=== PATIENT | female | born 1965 | race Caucasian/White ===

== ENCOUNTER 2017-11-05 23:18 | Inpatient (IN) | payer OTHER ==
[2017-11-05] MEDS ORDERED: morphine CARPU-JECT 4 MG/1 ML DISP.SYRIN IVPUSH ONE (23:25)
[2017-11-05] MEDS ORDERED: SODIUM CHLORIDE 1,000 ML IV ONE (23:25)
[2017-11-05] MEDS ORDERED: ONDANSETRON 4 MG/2 ML VIAL IVPB ONE (23:25)
[2017-11-05] MEDS ORDERED: HYOSCYAMINE SULFATE 0.125 MG *ODT PO ONE (23:27)
--- NOTE | 2017-11-05 23:27 | PDOC ---
History of Present Illness - General Chief Complaint: Pain, Acute Stated Complaint: ABD PAIN/NAUSEA/VOMITING Time Seen by Provider: 11/05/17 23:23 History Source: Patient Exam Limitations: No Limitations - History of Present Illness Initial Comments: 11/05/17 23:40 This is a 52-year-old female who comes in for evaluation of abdominal pain. Patient said she ate shrimp yesterday and after eating the shrimp developed abdominal pain and vomiting. Patient said that she last vomited yesterday but has continued to have progressive abdominal pain. Patient has also had a number of episodes of loose stools but can't remember when the last episode was thinks it may have been yesterday. Patient said she is otherwise healthy takes no medication denies any chest pain or shortness of breath. Denies any fevers or chills. PAST MEDICAL HISTORY: no significant history PAST SURGICAL HISTORY: no significant history FAMILY HISTORY: no pertinant history SOCIAL HISTORY: Pt lives with family and is employed. MEDICATIONS: reviewed ALLERGIES: As per nursing notes Review of Systems General: No fevers or chills, no weakness, no weight loss HEENT: No change in vision. No sore throat,. No ear pain CardioVascular: No chest pain or shortness of breath Respiratory:No cough, or wheezing. Gastrointestinal: + nausea, + vomitting, + diarrhea or constipation, No rectal bleeding, + abdominal pain Genitourinary: No dysuria, hematuria, or frequency Musculoskeletal: No joint or muscle pain or swelling Neurologic: No headache, vertigo, dizziness or loss of consciousness Psychiatric: nor depression Skin: No rashes or easy bruising Endocrine: no increased thirst or abnormal weight change Allergic: no skin or latex allergy All other systems reviewed and normal Exam: General: Well-nourished well-developed individual, no acute distress HEENT: Throat: Normal, tonsils normal, no erythema or exudate Neck: Supple, no meningeal signs, no lymphadenopathy Eyes::Pupils equal reactive and round, extraocular motion intact Chest: Nontender to palpation Cardiac: S1-S2 normal, regular rate and rhythm, no murmurs rubs or gallops Respiratory: Lungs clear to auscultation bilateral Abdomen: Moderately distended abdomen with decreased bowel sounds and diffuse tenderness on palpation but more tender right lower quadrant than rest of abdomen. There is diffuse guarding with some rebound. Extremities: Warm, dry, no cyanosis, clubbing, or edema Skin: No rashes Neuro: Alert and oriented x3, CN II - XII intact, nonfocal exam with normal strength, normal sensation, normal reflexes, normal gait, Psych: Normal mood and affect 11/06/17 03:21 Reevaluation: Patient is beginning to feel nauseous again with some mild pain. Will remedicate with Reglan and Dilaudid. Patient also febrile to 102.7. Patient given IV Tylenol CT scan done and read this time. It shows a ruptured acute appendicitis with no abscess or free air. Patient given Zosyn. Surgeon contacted Dr. Carr who has accepted the patient for admission but wants patient to be transferred over to [facility] and will go to the OR at [facility] Past History - Past Medical History Allergies/Adverse Reactions: Allergies Allergy/AdvReac Type Severity Reaction Status Date / Time No Known Allergies Allergy Unverified 11/05/17 23:23 Home Medications: Ambulatory Orders NK [No Known Home Medication] 11/05/17 ED Treatment Course - LABORATORY CBC & Chemistry Diagram: 11/05/17 23:27 11/05/17 23:27 *DC/Admit/Observation/Transfer Diagnosis at time of Disposition: Acute appendicitis with rupture - Discharge Dispostion Condition at time of disposition: Stable Admit: Yes - Referrals - Patient Instructions - Post Discharge Activity
[2017-11-05] MEDS ORDERED: HYOSCYAMINE SULFATE 0.125 MG *ODT ONE (23:31)
[2017-11-05] MEDS ORDERED: morphine SULFATE 4 MG/ML VIAL ONE (23:32)
[2017-11-05] MEDS ORDERED: ONDANSETRON 4 MG/2 ML VIAL ONE (23:32)
[2017-11-05] MEDS ORDERED: HYDROmorphone HCL CARPU-JECT 1 MG/1 ML DISP.SYRIN IVPUSH ONE (23:43)
[2017-11-05] MEDS ORDERED: HYDROmorphone HCL CARPU-JECT 1 MG/1 ML DISP.SYRIN ONE (23:52)
[2017-11-06 00:24] LABS: BASO % 0.2 % (0-2.0); HEMATOCRIT 41.6 % (32.4-45.2); HEMOGLOBIN 13.8 GM/dL (10.7-15.3); LYMPH % 7.8 % (8-40); MCH 27.8 pg (25.7-33.7); MCHC 33.1 g/dl (32.0-36.0); MEAN CELL VOLUME 83.9 fl (80-96); MEAN PLT VOLUME 7.7 fl (7.5-11.1); MONO % 4.5 % (3.8-10.2); NEUT % 87.5 % (42.8-82.8); PLATELET COUNT 296 K/MM3 (134-434); RBC 4.96 M/mm3 (3.60-5.2); RDW 13.5 % (11.6-15.6); WHITE BLOOD COUNT 13.7 K/mm3 (4.0-10.0)
[2017-11-06 00:53] LABS: BLOOD UREA NITROGEN 9 mg/dl (7-18); CHLORIDE 99 mmol/L (98-107); CREATININE 0.8 mg/dl (0.6-1.3); GLUCOSE,RANDOM 157 mg/dl (74-106); POTASSIUM 4.1 mmol/L (3.5-5.1); SODIUM 136 mmol/L (136-145)
[2017-11-06 00:54] LABS: ALBUMIN 3.7 g/dl (3.5-5.0); ALK PHOS 84 U/L (32-92); ANION GAP 13 (8-16); BILIRUBIN,TOTAL 1.1 mg/dl (0.2-1.0); CALCIUM 9.1 mg/dl (8.4-10.2); CO2 24 mmol/L (22-28); LIPASE 74.8 U/L (22-51); SGOT/AST 11 U/L (10-42); SGPT/ALT 26 U/L (10-40); TOT PROT 7.1 g/dl (6.4-8.3)
[2017-11-06] MEDS ORDERED: PIPERACIL/TAZOB 3.375 GM 3.375 GM/50 ML PREMIX IVPB ONE ×2 (03:08→08:00)
[2017-11-06] MEDS ORDERED: PIPERACILLIN/TAZOBACTAM 3.375 GM VIAL IVPB ONE (03:12)
[2017-11-06] MEDS ORDERED: METOCLOPRAMIDE HCL INJECTION 10 MG/2 ML VIAL IVPUSH ONE (03:17)
[2017-11-06] MEDS ORDERED: HYDROmorphone HCL CARPU-JECT 1 MG/1 ML DISP.SYRIN IVPUSH ONE (03:18)
[2017-11-06] MEDS ORDERED: HYDROmorphone HCL CARPU-JECT 1 MG/1 ML DISP.SYRIN ONE (03:22)
[2017-11-06] MEDS ORDERED: ACETAMINOPHEN 1000 MG/100 ML VIAL (NON FORMULARY) IVPB ONE (03:23)
[2017-11-06] MEDS ORDERED: ACETAMINOPHEN INJECTION 100 ML IVPB ONE (03:30)
--- NOTE | 2017-11-06 03:46 | CONSULT ---
Consult Consult Specialty:: general surgery Referred by:: gilles - ED Reason for Consultation:: ruptured appendicitis - History of Present Illness Chief Complaint: abdominal pain and vomiting History of Present Illness: 52 yo female no significant PMH presented to the ED reporting two days of vomiting and abdominal pain. Patient said she ate shrimp yesterday and after eating the shrimp developed abdominal pain and vomiting. Patient said that she last vomited yesterday but has continued to have progressive crampy abdominal pain focal to the right lower quadrant. Patient has also had a number of episodes of loose stools but can't remember when the last episode was thinks it may have been yesterday. Patient said she is otherwise healthy takes no medication denies any chest pain or shortness of breath. Denies any fevers or chills. Has not had a colonoscopy or any previous abdominal surgery. - History Source History Provided By: Patient Limitations to Obtaining History: No Limitations - Past Surgical History Additional Surgical History: breast augmentation, excision of lipoma back - Alcohol/Substance Use Hx Alcohol Use: Yes (socially ) History of Substance Use: reports: None - Smoking History Smoking history: Former smoker Have you smoked in the past 12 months: No - Social History Place of : [facility] History of Recent Travel: No Home Medications - Allergies Allergies/Adverse Reactions: Allergies Allergy/AdvReac Type Severity Reaction Status Date / Time No Known Allergies Allergy Unverified 11/05/17 23:23 - Home Medications Home Medications: Ambulatory Orders NK [No Known Home Medication] 11/05/17 Family Disease History - Family Disease History Family History: Denies Review of Systems - Review of Systems Constitutional: reports: Loss of Appetite, Weakness. denies: Chills, Fever Eyes: denies: Blurred Vision, Recent Change in Vision HENT: denies: Difficult Swallowing, Throat Pain Neck: denies: Stiffness, Swollen Glands Cardiovascular: denies: Chest Pain, Palpitations Respiratory: denies: Cough, SOB Gastrointestinal: reports: Abdominal Pain (RLQ), Diarrhea, Vomiting Genitourinary: denies: Burning, Discharge, Dysuria Breasts: reports: No Symptoms Reported, Breast Implants Musculoskeletal: denies: Muscle Pain, Muscle Weakness Integumentary: denies: Lesions, Rash Neurological: denies: Syncope, Tremors Endocrine: denies: Unexplained Weight Gain, Unexplained Weight Loss Hematology/Lymphatic: denies: Easily Bruised, Excessive Bleeding, Swollen Glands Psychiatric: denies: Anxiety, Depression Physical Exam Vital Signs: Vital Signs Temperature 102.7 F H 11/06/17 03:20 Pulse Rate 102 H 11/06/17 03:28 Respiratory Rate 20 11/06/17 03:20 Blood Pressure 116/71 11/06/17 03:20 O2 Sat by Pulse Oximetry (%) 95 11/06/17 03:28 Vital Signs Period Temp Pulse Resp BP Sys/Mark Pulse Ox Last 24 Hr 98.5 F-102.7 F 94-105 18-20 95-133/70-80 93-98 Constitutional: Yes: No Distress, Calm Eyes: Yes: EOM Intact, PERRL HENT: Yes: Atraumatic, Normocephalic Neck: Yes: Supple, Trachea Midline Cardiovascular: Yes: Regular Rate and Rhythm, S1, S2 Respiratory: Yes: Regular, CTA Bilaterally Gastrointestinal: Yes: Normal Bowel Sounds, Soft, Tenderness (right lower quadrant), Tenderness, Rebound, Vomiting ...Rectal Exam: Yes: Deferred Renal/: No: CVA Tenderness - Left, CVA Tenderness - Right Breast(s): Yes: Other (bilateral augmentation) Musculoskeletal: No: Muscle Pain, Muscle Weakness Extremities: No: Calf Tenderness, Cool, Cyanosis Edema: No Peripheral Pulses WNL: Yes Integumentary: No: Jaundice, Rash Neurological: Yes: Alert, Oriented Psychiatric: Yes: Alert, Oriented Labs: CBC, BMP 11/05/17 23:27 11/05/17 23:27 Imaging - Results Chest X-ray: Pending (inflammed appendix with perforation) Cat Scan: Report Reviewed, Image Reviewed (ruptured acute appendicitis) Problem List - Problems (1) Acute appendicitis with rupture Assessment/Plan: 62yo female with ruptured acute appendictis, associated persistent emesis and dehydration - given the perforation she will require a hospitalization of at least 4 days for IV antibiotic therapy NPO and IVF hydration empiric IV antibiotics - Zosyn ID consult for continued dosing - Dr. Sheffield type and screen and coagulation panel stat antemetic adequate analgesia OR for laparoscopic possible open appendectomy - Discussed with patient risks, benefits and alternatives of the proprosed procedure including but not limited to bleeding, infection, injury to adjacent structures, leak or injury, intraabdominal abscess, need for further procedures, ; alternatives include antibiotics, delayed or no surgery - risks of this include failure of nonoperative therapy, perforation, sepsis, recurrence, . Patient desires to proceed with operation - will take to OR for above. Informed consent signed for same. Thank you for the opportunity to participate in the care of this patient. Code(s): K35.2 - ACUTE APPENDICITIS WITH GENERALIZED PERITONITIS (2) Peritonitis Code(s): K65.9 - PERITONITIS, UNSPECIFIED (3) Abdominal pain in female patient Code(s): R10.9 - UNSPECIFIED ABDOMINAL PAIN (4) Dehydration Code(s): E86.0 - DEHYDRATION (5) Emesis, persistent Code(s): R11.10 - VOMITING, UNSPECIFIED
[2017-11-06] MEDS ORDERED: morphine CARPU-JECT 2 MG/1 ML DISP.SYRIN IVPUSH PRN (03:49)
[2017-11-06] MEDS ORDERED: ONDANSETRON 4 MG/2 ML VIAL IVPB PRN ×4 (03:49→10:57)
[2017-11-06] MEDS ORDERED: LACTATED RINGERS SOLUTION 1,000 ML IV SCH ×4 (04:00→10:15)
--- NOTE | 2017-11-06 04:03 | HP ---
Admitting History and Physical - Admission Chief Complaint: abdominal pain and vomiting History of Present Illness: 52 yo female no significant PMH presented to the ED reporting two days of vomiting and abdominal pain. Patient said she ate shrimp yesterday and after eating the shrimp developed abdominal pain and vomiting. Patient said that she last vomited yesterday but has continued to have progressive crampy abdominal pain focal to the right lower quadrant. Patient has also had a number of episodes of loose stools but can't remember when the last episode was thinks it may have been yesterday. Patient said she is otherwise healthy takes no medication denies any chest pain or shortness of breath. Denies any fevers or chills. Has not had a colonoscopy or any previous abdominal surgery. History Source: Patient Limitations to Obtaining History: No Limitations - Smoking History Smoking history: Former smoker Have you smoked in the past 12 months: No - Alcohol/Substance Use Hx Alcohol Use: Yes (socially ) History of Substance Use: reports: None - Social History ADL: Independent History of Recent Travel: No Home Medications - Allergies Allergies/Adverse Reactions: Allergies Allergy/AdvReac Type Severity Reaction Status Date / Time No Known Allergies Allergy Unverified 11/05/17 23:23 - Home Medications Home Medications: Ambulatory Orders NK [No Known Home Medication] 11/05/17 Review of Systems - Review of Systems Constitutional: reports: Loss of Appetite, Weakness. denies: Chills, Fever Eyes: denies: Blurred Vision, Recent Change in Vision HENT: denies: Difficult Swallowing, Throat Pain Neck: denies: Pain on Movement, Stiffness Cardiovascular: denies: Chest Pain, Palpitations Respiratory: denies: Cough, SOB Gastrointestinal: reports: Abdominal Pain, Vomiting Genitourinary: denies: Burning, Discharge Breasts: reports: Other (breast augmentation) Musculoskeletal: denies: Back Pain, Joint Pain Integumentary: denies: Lesions, Rash Neurological: denies: Syncope, Tremors Endocrine: denies: Unexplained Weight Gain, Unexplained Weight Loss Hematology/Lymphatic: denies: Easily Bruised, Excessive Bleeding Psychiatric: denies: Anxiety, Depression Physical Examination Vital Signs: Vital Signs Temperature 102.7 F H 11/06/17 03:20 Pulse Rate 102 H 11/06/17 03:28 Respiratory Rate 20 11/06/17 03:20 Blood Pressure 116/71 11/06/17 03:20 O2 Sat by Pulse Oximetry (%) 95 11/06/17 03:28 Vital Signs Period Temp Pulse Resp BP Sys/Mark Pulse Ox Last 24 Hr 98.5 F-102.7 F 94-105 18-20 95-133/70-80 93-98 Constitutional: Yes: No Distress, Calm Eyes: Yes: Conjunctiva Clear, EOM Intact HENT: Yes: Atraumatic, Normocephalic Neck: Yes: Supple, Trachea Midline Cardiovascular: Yes: Regular Rate and Rhythm, S1, S2. No: Murmur Respiratory: Yes: Regular, CTA Bilaterally. No: Cough Gastrointestinal: Yes: Normal Bowel Sounds, Soft, Tenderness (right lower quadrant), Tenderness, Rebound ...Rectal Exam: Yes: Deferred Renal/: No: CVA Tenderness - Left, CVA Tenderness - Right Breast(s): Yes: Other (bilateral augmentation) Extremities: No: Cold, Cool Edema: No Peripheral Pulses WNL: Yes Integumentary: No: Jaundice, Rash Neurological: Yes: Alert, Oriented Psychiatric: Yes: Alert, Oriented Labs: CBC, BMP 11/05/17 23:27 11/05/17 23:27 Imaging - Results Cat Scan: Report Reviewed, Image Reviewed (inflamed and perforated appendicitis) Problem List - Problems (1) Acute appendicitis with rupture Assessment/Plan: 62yo female with ruptured acute appendicitis, associated persistent emesis and dehydration - given the perforation she will require a hospitalization of at least 4 days for IV antibiotic therapy NPO and IVF hydration empiric IV antibiotics - Zosyn ID consult for continued dosing - Dr. Sheffield type and screen and coagulation panel stat antemetic adequate analgesia OR for laparoscopic possible open appendectomy - Discussed with patient risks, benefits and alternatives of the proprosed procedure including but not limited to bleeding, infection, injury to adjacent structures, leak or injury, intraabdominal abscess, need for further procedures, ; alternatives include antibiotics, delayed or no surgery - risks of this include failure of nonoperative therapy, perforation, sepsis, recurrence, . Patient desires to proceed with operation - will take to OR for above. Informed consent signed for same. GI and DVT prophylaxsis Code(s): K35.2 - ACUTE APPENDICITIS WITH GENERALIZED PERITONITIS (2) Peritonitis Code(s): K65.9 - PERITONITIS, UNSPECIFIED (3) Abdominal pain in female patient Code(s): R10.9 - UNSPECIFIED ABDOMINAL PAIN (4) Dehydration Code(s): E86.0 - DEHYDRATION (5) Emesis, persistent Code(s): R11.10 - VOMITING, UNSPECIFIED
[2017-11-06] MEDS ORDERED: morphine SULFATE 4 MG/ML VIAL IVPUSH PRN (05:13)
[2017-11-06] MEDS ORDERED: ACETAMINOPHEN 650 MG/20.3 ML ORAL SOLUTION (CUPS) PO ONE (05:19)
[2017-11-06] MEDS ORDERED: morphine CARPU-JECT 8 MG/1 ML DISP.SYRIN IVPUSH PRN ×2 (05:35→06:02)
[2017-11-06] MEDS ORDERED: ACETAMINOPHEN 325 MG TABLET (FP) PO PRN (05:47)
[2017-11-06] MEDS ORDERED: IBUPROFEN 600 MG TABLET (FP) PO PRN (05:49)
[2017-11-06 06:17] VITALS: BMI 26.2
[2017-11-06 07:10] LABS: INR 1.43 (0.82-1.09); PROTHROMBIN TIME (PATIENT) 16.2 SEC (9.98-11.88)
[2017-11-06] MEDS ORDERED: PIPERACILLIN/TAZOB 3.375 GM 3.375 GM in DEXTROSE 5%-WATER - 100 ML IVPB ONE (08:15)
[2017-11-06] MEDS ORDERED: cefOXitin SODIUM 1 GM VIAL (RESTRICTED TO ID) IVPB ONE (08:45)
[2017-11-06] MEDS ORDERED: BUPIVACAINE HCL/PF 0.5% (5MG/ML) 10 ML VIAL IJ ONE ×2 (09:59)
[2017-11-06] MEDS ORDERED: PANTOPRAZOLE SODIUM 40 MG VIAL IVPUSH SCH (10:00)
[2017-11-06] MEDS ORDERED: PROMETHAZINE HCL 25 MG/1 ML VIAL IVPB PRN ×2 (10:15→10:57)
[2017-11-06] MEDS ORDERED: morphine CARPU-JECT 10 MG/1 ML DISP.SYRIN IVPUSH PRN (10:57)
[2017-11-06 11:10] LABS: URINE APPEARANCE CLEAR; URINE BILIRUBIN NEGATIVE (NEGATIVE); URINE BLOOD 2+ (NEGATIVE); URINE COLOR LTYELLOW; URINE GLUCOSE (UA) NEGATIVE (NEGATIVE); URINE KETONE NEGATIVE (NEGATIVE); URINE LEUK ESTERASE TRACE (NEGATIVE); URINE NITRITE NEGATIVE (NEGATIVE); URINE PROTEIN NEGATIVE (NEGATIVE); URINE UROBILINOGEN NEGATIVE mg/dL (0.2-1.0)
[2017-11-06 11:15] LABS: EPI CELLS FEW /HPF (FEW)
[2017-11-06] MEDS: LACTATED RINGERS SOLUTION 1,000 ML/1,000 ML INFUS.BAG IV SCH ×2 (11:40→18:34)
--- NOTE | 2017-11-06 12:33 | OP ---
Operative Note - Note: Operative Date: 11/06/17 Pre-Operative Diagnosis: acute ruptured appendicitis Operation: laparoscopic appendectomy Findings: acute inflamed appendix grossly necrotic in two locations, fell apart during dissection Post-Operative Diagnosis: Same as Pre-op Surgeon: Milton Carr Anesthesiologist/DIAGRAMMER: Terell Mireles Anesthesia: General, Local Specimens Removed: appendix in 3 pieces Estimated Blood Loss (mls): 25 Drains, Volume Out (mls): 240 (deluca) Fluid Volume Replaced (mls): 2,000 Operative Report Dictated: Yes
--- NOTE | 2017-11-06 14:05 | CON.ID ---
Consult Consult Specialty:: infectious diseases Reason for Consultation:: perforated appendix - History of Present Illness Chief Complaint: abd pain History of Present Illness: 52 yo female no significant PMH admitted because of two days of vomiting and abdominal pain. patient also was having loose stools patient was worked up and found to have ruptured appendix surgery took the patient to the operating room and patient underwent surgery and now is post op--says she feels much better family in room - History Source History Provided By: Patient Limitations to Obtaining History: No Limitations - Past Medical History ...: No - Past Surgical History Additional Surgical History: breast augmentation, excision of lipoma back - Alcohol/Substance Use Hx Alcohol Use: Yes (socially ) History of Substance Use: reports: None - Smoking History Smoking history: Former smoker Have you smoked in the past 12 months: No - Social History ADL: Independent History of Recent Travel: No Home Medications - Allergies Allergies/Adverse Reactions: Allergies Allergy/AdvReac Type Severity Reaction Status Date / Time No Known Allergies Allergy Unverified 11/05/17 23:23 - Home Medications Home Medications: Ambulatory Orders NK [No Known Home Medication] 11/05/17 Review of Systems - Review of Systems Constitutional: reports: No Symptoms Eyes: reports: No Symptoms HENT: reports: No Symptoms Neck: reports: No Symptoms Cardiovascular: reports: No Symptoms Respiratory: reports: No Symptoms Gastrointestinal: reports: Abdominal Pain Genitourinary: reports: No Symptoms Musculoskeletal: reports: No Symptoms Integumentary: reports: No Symptoms Neurological: reports: No Symptoms Endocrine: reports: No Symptoms Hematology/Lymphatic: reports: No Symptoms Psychiatric: reports: No Symptoms Physical Exam Vital Signs: Vital Signs Temperature 98.9 F 11/06/17 12:10 Pulse Rate 96 H 11/06/17 12:10 Respiratory Rate 18 11/06/17 12:10 Blood Pressure 120/70 11/06/17 12:10 O2 Sat by Pulse Oximetry (%) 97 11/06/17 12:09 Constitutional: Yes: Well Nourished, Calm, Mild Distress Eyes: Yes: Conjunctiva Clear Cardiovascular: Yes: Regular Rate and Rhythm Respiratory: Yes: Regular, CTA Bilaterally Gastrointestinal: Yes: Soft, Hypoactive Bowel Sounds Musculoskeletal: Yes: WNL Extremities: Yes: WNL Neurological: Yes: Alert, Oriented Psychiatric: Yes: Alert, Oriented Labs: CBC, BMP 11/05/17 23:27 11/05/17 23:27 Imaging - Results Chest X-ray: Report Reviewed, Image Reviewed Cat Scan: Report Reviewed, Image Reviewed Assessment/Plan Problem List - Problems (1) Acute appendicitis with rupture Code(s): K35.2 - ACUTE APPENDICITIS WITH GENERALIZED PERITONITIS (2) Peritonitis Code(s): K65.9 - PERITONITIS, UNSPECIFIED (3) Abdominal pain in female patient Code(s): R10.9 - UNSPECIFIED ABDOMINAL PAIN (4) Dehydration Code(s): E86.0 - DEHYDRATION (5) Emesis, persistent Code(s): R11.10 - VOMITING, UNSPECIFIED plan patient with ruptured apeendix will need couple of days of iv abx will continue zosyn rest as per surgery
[2017-11-06] MEDS: morphine CARPU-JECT 10 MG/1 ML DISP.SYRIN IVPUSH PRN (14:17)
[2017-11-06] MEDS: PIPERACILLIN/TAZOB 3.375 GM 3.375 GM in DEXTROSE 5%-WATER - 100 ML IVPB SCH (17:04)
[2017-11-06] MEDS: IBUPROFEN 600 MG TABLET (FP) PO PRN ×2 (17:09→23:16)
--- NOTE | 2017-11-06 18:35 | EKG ---
Test Reason : Blood Pressure : / mmHG Vent. Rate : 099 BPM Atrial Rate : 099 BPM P-R Int : 152 ms QRS Dur : 084 ms QT Int : 354 ms P-R-T Axes : 058 046 041 degrees QTc Int : 454 ms POOR DATA QUALITY, INTERPRETATION MAY BE ADVERSELY AFFECTED NORMAL SINUS RHYTHM RSR' OR QR PATTERN IN V1 SUGGESTS RIGHT VENTRICULAR CONDUCTION DELAY NO PREVIOUS ECGS AVAILABLE Confirmed by NEHA TSANG, FOREST ([id number]) on 11/06/2017 6:34:41 PM Referred By: MD MARTIN Confirmed By:FOREST SOLOMON MD
[2017-11-06] MEDS ORDERED: PT OWN MED DRAWER 7, Y5N ONE (22:01)
[2017-11-07] MEDS: PIPERACILLIN/TAZOB 3.375 GM 3.375 GM in DEXTROSE 5%-WATER - 100 ML IVPB SCH ×3 (02:44→17:15)
[2017-11-07] MEDS: LACTATED RINGERS SOLUTION 1,000 ML/1,000 ML INFUS.BAG IV SCH (06:46)
[2017-11-07] MEDS: morphine CARPU-JECT 10 MG/1 ML DISP.SYRIN IVPUSH PRN ×2 (07:42→13:05)
[2017-11-07 08:13] LABS: BASO % 0.4 % (0-2.0); EOS % 0.1 % (0-4.5); HEMATOCRIT 33.7 % (32.4-45.2); HEMOGLOBIN 11.2 GM/dL (10.7-15.3); LYMPH % 10.3 % (8-40); MCH 27.9 pg (25.7-33.7); MCHC 33.3 g/dl (32.0-36.0); MEAN CELL VOLUME 83.7 fl (80-96); MEAN PLT VOLUME 7.7 fl (7.5-11.1); MONO % 3.6 % (3.8-10.2); NEUT % 85.6 % (42.8-82.8); PLATELET COUNT 211 K/MM3 (134-434); RBC 4.02 M/mm3 (3.60-5.2); RDW 13.4 % (11.6-15.6); WHITE BLOOD COUNT 10.2 K/mm3 (4.0-10.0)
[2017-11-07 09:38] LABS: CHLORIDE 105 mmol/L (98-107); POTASSIUM 3.6 mmol/L (3.5-5.1); SODIUM 140 mmol/L (136-145)
[2017-11-07 09:46] LABS: ALBUMIN 2.4 g/dl (3.4-5.0); ALK PHOS 66 U/L (45-117); ANION GAP 9 (8-16); BILIRUBIN,TOTAL 1.4 mg/dL (0.2-1.0); BLOOD UREA NITROGEN 8 mg/dL (7-18); CALCIUM 8.2 mg/dL (8.5-10.1); CO2 26 mmol/L (21-32); CREATININE 0.7 mg/dL (0.55-1.02); GLUCOSE,RANDOM 102 mg/dL (74-106); SGOT/AST 12 U/L (15-37); SGPT/ALT 17 U/L (12-78); TOT PROT 5.3 g/dl (6.4-8.2)
[2017-11-07] MEDS: PANTOPRAZOLE SODIUM 40 MG VIAL IVPUSH SCH (10:39)
--- NOTE | 2017-11-07 13:22 | PN ---
Progress Note, Physician Chief Complaint: abdominal pain History of Present Illness: 52 yo female no significant PMH presented to the ED reporting two days of vomiting and abdominal pain. Patient said she ate shrimp yesterday and after eating the shrimp developed abdominal pain and vomiting. s/p laparoscopic appendectomy, has tolerated clears, passing flatus, pain is adequately controlled. She reports pain is improved compared to yesterday. - Current Medication List Current Medications: Active Medications Acetaminophen (Tylenol -) 650 mg PO Q6H PRN PRN Reason: FEVER OR PAIN Lactated Ringer's (Lactated Ringers Solution) 1,000 ml in 1,000 mls @ 83 mls/ hr IV ASDIR CESAR Last Admin: 11/07/17 06:46 Dose: 83 mls/hr Piperacillin Sod/Tazobactam (Sod 3.375 gm/ Dextrose) 100 mls @ 100 mls/hr IVPB Q8H-IV CESAR PRN Reason: Protocol Last Admin: 11/07/17 10:39 Dose: 100 mls/hr Ibuprofen (Motrin -) 600 mg PO Q6H PRN PRN Reason: PAIN LEVEL 1-5 Last Admin: 11/06/17 23:16 Dose: 600 mg Lorazepam (Ativan -) 1 mg PO ONCE ONE Stop: 11/07/17 21:01 Ondansetron HCl (Zofran Injection) 8 mg IVPB Q6H PRN PRN Reason: NAUSEA AND/OR VOMITING Oxycodone HCl (Roxicodone -) 5 mg PO Q6H PRN PRN Reason: PAIN LEVEL 6-10 Pantoprazole Sodium (Protonix Iv) 40 mg IVPUSH DAILY [facility] Last Admin: 11/07/17 10:39 Dose: 40 mg - Objective Vital Signs: Vital Signs Temperature 98.0 F 11/07/17 06:30 Pulse Rate 89 11/07/17 11:00 Respiratory Rate 24 11/07/17 06:30 Blood Pressure 100/54 11/07/17 06:30 O2 Sat by Pulse Oximetry (%) 93 L 11/07/17 11:00 Vital Signs Period Temp Pulse Resp BP Sys/Mark Pulse Ox Last 24 Hr 98.0 F-100.6 F 85-109 18-24 100-111/54-85 93-95 Constitutional: Yes: Well Nourished, No Distress, Calm Eyes: Yes: Conjunctiva Clear, EOM Intact HENT: Yes: Atraumatic, Normocephalic Neck: Yes: Supple, Trachea Midline Cardiovascular: Yes: Regular Rate and Rhythm, S1, S2. No: Murmur Respiratory: Yes: Regular, CTA Bilaterally Gastrointestinal: Yes: Normal Bowel Sounds, Soft, Tenderness (dylan incisonal) Genitourinary: No: CVA Tenderness - Left, CVA Tenderness - Right Breast(s): Yes: Breast Implants Extremities: No: Cool, Cyanosis Edema: Yes Peripheral Pulses WNL: No Peripheral Pulses: Left Doralis Pedis: 2+, Right Dorsalis Pedis: 2+ Integumentary: No: Jaundice, Rash Wound/Incision: Yes: Clean/Dry, Dressing Dry and Intact. No: Reddened, Bleeding Neurological: Yes: Alert, Confusion Psychiatric: Yes: Alert, Oriented Labs: CBC, BMP 11/07/17 06:00 11/07/17 06:00 INR, PTT INR 1.43 (0.82-1.09) H 11/06/17 06:38 Problem List - Problems (1) Acute appendicitis with rupture Assessment/Plan: 62yo female with ruptured acute appendicitis, associated persistent emesis and dehydration - given the perforation she will require a hospitalization of at least 4 days for IV antibiotic therapy s/p Laparoscopic appendectomy POD#1 voiding, passing gas no BM, using IS, Ambulating in the halls. will remove the outer dressing tomorrow advance diet to regular IV antibiotics per ID - Zosyn antiemetic anxiolytic started for bedtime adequate analgesia changed to PO GI and DVT prophylaxsis Code(s): K35.2 - ACUTE APPENDICITIS WITH GENERALIZED PERITONITIS (2) Peritonitis Code(s): K65.9 - PERITONITIS, UNSPECIFIED (3) Abdominal pain in female patient Code(s): R10.9 - UNSPECIFIED ABDOMINAL PAIN (4) Dehydration Code(s): E86.0 - DEHYDRATION (5) Emesis, persistent Code(s): R11.10 - VOMITING, UNSPECIFIED
--- NOTE | 2017-11-07 14:34 | PN ---
Progress Note, Physician History of Present Illness: continues to have abd pain still with some abd distension - Current Medication List Current Medications: Active Medications Acetaminophen (Tylenol -) 650 mg PO Q6H PRN PRN Reason: FEVER OR PAIN Lactated Ringer's (Lactated Ringers Solution) 1,000 ml in 1,000 mls @ 83 mls/ hr IV ASDIR CESAR Last Admin: 11/07/17 06:46 Dose: 83 mls/hr Piperacillin Sod/Tazobactam (Sod 3.375 gm/ Dextrose) 100 mls @ 100 mls/hr IVPB Q8H-IV CESAR PRN Reason: Protocol Last Admin: 11/07/17 10:39 Dose: 100 mls/hr Ibuprofen (Motrin -) 600 mg PO Q6H PRN PRN Reason: PAIN LEVEL 1-5 Last Admin: 11/06/17 23:16 Dose: 600 mg Lorazepam (Ativan -) 1 mg PO ONCE ONE Stop: 11/07/17 21:01 Ondansetron HCl (Zofran Injection) 8 mg IVPB Q6H PRN PRN Reason: NAUSEA AND/OR VOMITING Oxycodone HCl (Roxicodone -) 5 mg PO Q6H PRN PRN Reason: PAIN LEVEL 6-10 Pantoprazole Sodium (Protonix Iv) 40 mg IVPUSH DAILY [facility] Last Admin: 11/07/17 10:39 Dose: 40 mg - Objective Vital Signs: Vital Signs Temperature 98.5 F 11/07/17 10:00 Pulse Rate 89 11/07/17 11:00 Respiratory Rate 20 11/07/17 10:00 Blood Pressure 107/58 11/07/17 10:00 O2 Sat by Pulse Oximetry (%) 93 L 11/07/17 11:00 Constitutional: Yes: No Distress, Calm Cardiovascular: Yes: Regular Rate and Rhythm Respiratory: Yes: Regular, CTA Bilaterally Gastrointestinal: Yes: Distention, Tenderness, Other (absent bowel sounds) Musculoskeletal: Yes: WNL Extremities: Yes: WNL Wound/Incision: Yes: Well Approximated, Dressing Dry and Intact Labs: CBC, BMP 11/07/17 06:00 11/07/17 06:00 INR, PTT INR 1.43 (0.82-1.09) H 11/06/17 06:38 Assessment/Plan Problem List - Problems (1) Acute appendicitis with rupture Code(s): K35.2 - ACUTE APPENDICITIS WITH GENERALIZED PERITONITIS (2) Peritonitis Code(s): K65.9 - PERITONITIS, UNSPECIFIED (3) Abdominal pain in female patient Code(s): R10.9 - UNSPECIFIED ABDOMINAL PAIN (4) Dehydration Code(s): E86.0 - DEHYDRATION (5) Emesis, persistent Code(s): R11.10 - VOMITING, UNSPECIFIED plan continue iv abx await for gi function to come back wbc trending down--monitor rest as per surgery
--- NOTE | 2017-11-07 18:55 | PN ---
Progress Note, Physician Chief Complaint: Pt has some abdominal pain controlled with meds. No GA complaints - Current Medication List Current Medications: Active Medications Acetaminophen (Tylenol -) 650 mg PO Q6H PRN PRN Reason: FEVER OR PAIN Lactated Ringer's (Lactated Ringers Solution) 1,000 ml in 1,000 mls @ 83 mls/ hr IV ASDIR CESAR Last Admin: 11/07/17 06:46 Dose: 83 mls/hr Piperacillin Sod/Tazobactam (Sod 3.375 gm/ Dextrose) 100 mls @ 100 mls/hr IVPB Q8H-IV CESAR PRN Reason: Protocol Last Admin: 11/07/17 17:15 Dose: 100 mls/hr Ibuprofen (Motrin -) 600 mg PO Q6H PRN PRN Reason: PAIN LEVEL 1-5 Last Admin: 11/06/17 23:16 Dose: 600 mg Lorazepam (Ativan -) 1 mg PO ONCE ONE Stop: 11/07/17 21:01 Ondansetron HCl (Zofran Injection) 8 mg IVPB Q6H PRN PRN Reason: NAUSEA AND/OR VOMITING Oxycodone HCl (Roxicodone -) 5 mg PO Q6H PRN PRN Reason: PAIN LEVEL 6-10 Pantoprazole Sodium (Protonix Iv) 40 mg IVPUSH DAILY [facility] Last Admin: 11/07/17 10:39 Dose: 40 mg - Objective Vital Signs: Vital Signs Temperature 98.5 F 11/07/17 10:00 Pulse Rate 89 11/07/17 11:00 Respiratory Rate 20 11/07/17 10:00 Blood Pressure 107/58 11/07/17 10:00 O2 Sat by Pulse Oximetry (%) 93 L 11/07/17 11:00 Constitutional: Yes: Well Nourished, No Distress, Calm Musculoskeletal: Yes: WNL Neurological: Yes: WNL, Alert, Oriented Labs: CBC, BMP 11/07/17 06:00 11/07/17 06:00 INR, PTT INR 1.43 (0.82-1.09) H 11/06/17 06:38 Assessment/Plan POD#1 s/p laparoscopic appendectomy under GA. Doing well from anesthesia standpoint. D/C from anesthesia care
[2017-11-07] MEDS ORDERED: LORazepam 1 MG TABLET PO ONE (21:00)
[2017-11-07] MEDS: IBUPROFEN 600 MG TABLET (FP) PO PRN (21:09)
--- NOTE | 2017-11-07 22:05 | OP ---
DATE OF OPERATION: 11/06/2017 PREOPERATIVE DIAGNOSIS: Acute ruptured appendicitis. POSTOPERATIVE DIAGNOSIS: Acute ruptured appendicitis. PROCEDURE: Laparoscopic appendectomy. ATTENDING SURGEON: Milton Carr MD ANETHESIOLOGIST: Terell Mireles MD ANESTHESIA: General with local. Local consisted of 0.5% Marcaine, a total of 10 mL given at the port sites. SPECIMEN REMOVED: Appendix in 3 pieces. ESTIMATED BLOOD LOSS: 25 mL. DOMÍNGUEZ DRAIN: 240 mL of urine. INTRAVENOUS FLUID REPLACED: 2 L. INDICATIONS: The patient is a 52-year-old female with a history of COPD, breast augmentation surgery, who presented with 2 days of right lower quadrant abdominal pain that she mistook for food poisoning after a meal of shrimp. The workup in the ED included a CT scan that showed a ruptured appendicitis without abscess formation or free air. In the right lower quadrant it was inflamed. There was an inflammatory process in the vicinity. She was counseled regarding the need for surgical intervention. She signed the informed consent after she was explained the risks, benefits, and alternatives to surgical procedure proposed, that being laparoscopic appendectomy with possibility of opening. She was then taken for the procedure after she had all of her questions answered to her satisfaction. She was accompanied by her daughter and significant other. PROCEDURE: The patient was brought to the operating room and placed in the supine position on the operating table. The arms were extended 90 degrees. She was prepped and draped and had appropriate IV access on the table. She had lower extremities Venodynes placed. She received intravenous antibiotics including Zosyn prior to the start of the procedure. She was induced with general anesthesia and endotracheally intubated. At which point, the let arm was tucked at the site to allow for better operative access. The anterior abdominal wall was prepped and draped in the standard surgical fashion, blocking the lower abdomen. We proceeded first with a formal timeout, identifying the site, procedure, equipment was identified in the room, and counts were correct preoperatively. We proceeded first with sterile prep and drape, at which point we proceeded then with surgical markings at the site; at the supraumbilical site, the suprapubic site in the midline, and then the anterior superior iliac spine in the left lower quadrant as the third port. At the umbilicus, we started with the standard Zuniga entry into the abdomen. A 15-blade scalpel was used to incise the skin. Bovie cautery was used to deepen and widen the incision to the anterior fascia. It was identified and then scored in the midline. Benjamin's were used to retract the midline fascia superiorly and elevate it off of the abdomen, at which point, entry was made into the abdomen with a clamp and then a finger. Assuring that there were no adherent viscera to the site, a 12-mm Zuniga trocar was then inserted into the abdomen. The balloon was inflated and pneumoperitoneum established at 15 mmHg, at which point we proceeded then with port entries at the suprapubic area under direct visualization and the left lower quadrant as well in the standard fashion, 5-mm ports at each. After instilling the trocar sites, we then turned our attention to the right lower quadrant. There was a significant inflammatory process that was identified. The patient was ideally positioned in reverse Trendelenburg to allow gravity to facilitate retraction and dissection. We then carefully dissected the edge of the cecum and the ileocecal valve, identifying what appeared to be an obvious rupture in the mid body of the appendix, near the tip. The tip was freed, at which point the first fragment of appendix easily fell apart. It was kept in the quadrant for later retrieval. We then proceeded to try to control contamination with suction and free the remaining body segments. The base could be identified on the cecum and it was cleared at all aspects and then dissected with a [place] dissector to encircle the body of the appendix. An EndoGIA was then used from the umbilical port. It was 10-mm with a blue load, to allow for adequate control of the base itself. Once the EndoGIA was fired, we proceeded then with dissection of the mesoappendix and appendiceal artery mesentery from the inflammatory mass. We used a single white firing to transect the mesoappendix where it could be ideally visualized on all aspects. There was no bleeding on the staple line. The area was then irrigated with the patient in the dependent position to allow for suctioning. Once hemostasis could be obtained, the remaining 3 fragments of the appendix were retrieved from the abdomen using an EndoCatch bag from the umbilicus. With all 3 pieces accounted for externally, the pneumoperitoneum was reestablished and we turned our attention to inspecting the area. The ileocecal valve was identified. The cecum appeared to be intact. There were no additional sites of bowel injury. The inflammatory peel was irrigated copiously. The patient was returned to neutral position. The irrigation was serially suctioned from the abdomen and pelvis to the best of our ability. We then proceeded with returning the bowel to normal anatomic position. The remainder of the abdominal viscera appeared healthy and viable. Given the amount of contamination from the ruptured appendix, we decided not to leave a drain at this point as all structures appeared to be intact and well repaired. We removed the trocars under direct visualization and then relieved the pneumoperitoneum. The 5-mm trocar site at the suprapubic site and the left lower quadrant were closed with 4-0 Monocryl. The umbilicus was closed with a 4-0 Vicryl in a [id number] fashion ablating the fascia and closing the 12-mm port site. The skin was then irrigated and the skin was closed with 4-0 Monocryl in the standard running fashion. The skin was cleaned. Sterile dressings were placed including benzoin and Steri-Strips and gauze sponges with Tegaderm to hold them in place. The patient was awoken from general anesthesia, having tolerated the procedure well. She was taken to the recovery room in stable condition. She was also counseled regarding the findings. MD GRETCHEN Carney/[id number]
[2017-11-08] MEDS ORDERED: PT OWN MED DRAWER 7, Y5N ONE ×2 (01:10→09:33)
[2017-11-08] MEDS: PIPERACILLIN/TAZOB 3.375 GM 3.375 GM in DEXTROSE 5%-WATER - 100 ML IVPB SCH ×2 (01:22→09:45)
[2017-11-08 08:57] LABS: BASO % 0.5 % (0-2.0); EOS % 1.2 % (0-4.5); HEMATOCRIT 29.9 % (32.4-45.2); HEMOGLOBIN 9.9 GM/dL (10.7-15.3); MCH 27.6 pg (25.7-33.7); MCHC 33.1 g/dl (32.0-36.0); MEAN CELL VOLUME 83.3 fl (80-96); MEAN PLT VOLUME 7.7 fl (7.5-11.1); NEUT % 83.3 % (42.8-82.8); PLATELET COUNT 215 K/MM3 (134-434); RBC 3.59 M/mm3 (3.60-5.2); RDW 13.5 % (11.6-15.6); WHITE BLOOD COUNT 9.9 K/mm3 (4.0-10.0)
[2017-11-08 09:26] LABS: ALBUMIN 2.1 g/dl (3.4-5.0); ANION GAP 8 (8-16); BILIRUBIN,TOTAL 0.9 mg/dL (0.2-1.0); BLOOD UREA NITROGEN 9 mg/dL (7-18); CALCIUM 8.1 mg/dL (8.5-10.1); CHLORIDE 106 mmol/L (98-107); CO2 28 mmol/L (21-32); CREATININE 0.4 mg/dL (0.55-1.02); GLUCOSE,RANDOM 86 mg/dL (74-106); POTASSIUM 3.8 mmol/L (3.5-5.1); SGOT/AST 10 U/L (15-37); SGPT/ALT 14 U/L (12-78); SODIUM 142 mmol/L (136-145)
[2017-11-08 09:27] LABS: ALK PHOS 63 U/L (45-117)
[2017-11-08] MEDS: PANTOPRAZOLE SODIUM 40 MG VIAL IVPUSH SCH (09:45)
--- NOTE | 2017-11-08 09:50 | PN ---
Progress Note, Physician Chief Complaint: abdominal pain History of Present Illness: 52 yo female no significant PMH presented to the ED reporting two days of vomiting and abdominal pain. Patient said she ate shrimp yesterday and after eating the shrimp developed abdominal pain and vomiting. s/p laparoscopic appendectomy, has tolerated regular diet, passing flatus, pain is adequately controlled. She is not sleeping well. She reports pain is improving at the surgical site. - Current Medication List Current Medications: Active Medications Acetaminophen (Tylenol -) 650 mg PO Q6H PRN PRN Reason: FEVER OR PAIN Lactated Ringer's (Lactated Ringers Solution) 1,000 ml in 1,000 mls @ 83 mls/ hr IV ASDIR CESAR Last Admin: 11/07/17 06:46 Dose: 83 mls/hr Piperacillin Sod/Tazobactam (Sod 3.375 gm/ Dextrose) 100 mls @ 100 mls/hr IVPB Q8H-IV CESAR PRN Reason: Protocol Last Admin: 11/08/17 09:45 Dose: 100 mls/hr Ibuprofen (Motrin -) 600 mg PO Q6H PRN PRN Reason: PAIN LEVEL 1-5 Last Admin: 11/07/17 21:09 Dose: 600 mg Ondansetron HCl (Zofran Injection) 8 mg IVPB Q6H PRN PRN Reason: NAUSEA AND/OR VOMITING Oxycodone HCl (Roxicodone -) 5 mg PO Q6H PRN PRN Reason: PAIN LEVEL 6-10 Pantoprazole Sodium (Protonix Iv) 40 mg IVPUSH DAILY [facility] Last Admin: 11/08/17 09:45 Dose: 40 mg - Objective Vital Signs: Vital Signs Temperature 97.7 F 11/08/17 08:00 Pulse Rate 93 H 11/08/17 08:00 Respiratory Rate 11/08/17 08:00 Blood Pressure 115/69 11/08/17 08:00 O2 Sat by Pulse Oximetry (%) 93 L 11/07/17 21:00 Constitutional: Yes: Well Nourished, No Distress, Calm Eyes: Yes: Conjunctiva Clear, EOM Intact HENT: Yes: Atraumatic, Normocephalic Neck: Yes: Supple, Trachea Midline Cardiovascular: Yes: Regular Rate and Rhythm, S1, S2 Respiratory: Yes: Regular, CTA Bilaterally Gastrointestinal: Yes: Normal Bowel Sounds, Soft. No: Tenderness Breast(s): Yes: Breast Implants Edema: No Peripheral Pulses WNL: Yes Peripheral Pulses: Left Doralis Pedis: 2+, Right Dorsalis Pedis: 2+ Wound/Incision: Yes: Clean/Dry, Well Approximated, Steri Strips (in place), Dressing Removed (tegader and junito sponge removed) Neurological: Yes: Alert, Oriented Psychiatric: Yes: Alert, Oriented Labs: CBC, BMP 11/08/17 07:28 11/08/17 07:28 INR, PTT INR 1.43 (0.82-1.09) H 11/06/17 06:38 Problem List - Problems (1) Acute appendicitis with rupture Assessment/Plan: 62yo female with ruptured acute appendicitis, associated persistent emesis and dehydration - given the perforation she will require a hospitalization of at least 4 days for IV antibiotic therapy s/p Laparoscopic appendectomy POD#2 voiding, passing gas no BM, using IS, Ambulating in the halls. Wounds look good. advance diet to regular IV antibiotics per ID - Zosyn antiemetic may shower anxiolytic started for bedtime adequate analgesia changed to PO GI and DVT prophylaxsis Code(s): K35.2 - ACUTE APPENDICITIS WITH GENERALIZED PERITONITIS (2) Peritonitis Code(s): K65.9 - PERITONITIS, UNSPECIFIED (3) Abdominal pain in female patient Code(s): R10.9 - UNSPECIFIED ABDOMINAL PAIN (4) Dehydration Code(s): E86.0 - DEHYDRATION (5) Emesis, persistent Code(s): R11.10 - VOMITING, UNSPECIFIED
[2017-11-08] MEDS ORDERED: diazePAM 5 MG TABLET PO ONE (13:15)
[2017-11-08] MEDS: ACETAMINOPHEN 325 MG TABLET (FP) PO PRN ×2 (14:31→21:13)
[2017-11-08] MEDS: oxyCODONE HCL 5 MG TABLET PO PRN ×2 (14:32→21:13)
--- NOTE | 2017-11-08 15:10 | PN ---
Progress Note, Physician History of Present Illness: stable doing well passing gases abd soft - Current Medication List Current Medications: Active Medications Acetaminophen (Tylenol -) 650 mg PO Q6H PRN PRN Reason: FEVER OR PAIN Last Admin: 11/08/17 14:31 Dose: 325 mg Piperacillin Sod/Tazobactam (Sod 3.375 gm/ Dextrose) 100 mls @ 100 mls/hr IVPB Q8H-IV CESAR PRN Reason: Protocol Last Admin: 11/08/17 09:45 Dose: 100 mls/hr Ibuprofen (Motrin -) 600 mg PO Q6H PRN PRN Reason: PAIN LEVEL 1-5 Last Admin: 11/07/17 21:09 Dose: 600 mg Ondansetron HCl (Zofran Injection) 8 mg IVPB Q6H PRN PRN Reason: NAUSEA AND/OR VOMITING Oxycodone HCl (Roxicodone -) 5 mg PO Q6H PRN PRN Reason: PAIN LEVEL 6-10 Last Admin: 11/08/17 14:32 Dose: 5 mg Pantoprazole Sodium (Protonix Iv) 40 mg IVPUSH DAILY [facility] Last Admin: 11/08/17 09:45 Dose: 40 mg - Objective Vital Signs: Vital Signs Temperature 97.7 F 11/08/17 08:00 Pulse Rate 93 H 11/08/17 08:00 Respiratory Rate 18 11/08/17 08:00 Blood Pressure 115/69 11/08/17 08:00 O2 Sat by Pulse Oximetry (%) 93 L 11/08/17 09:00 Constitutional: Yes: Calm, Mild Distress Cardiovascular: Yes: Regular Rate and Rhythm Gastrointestinal: Yes: Normal Bowel Sounds, Soft Musculoskeletal: Yes: WNL Extremities: Yes: WNL Integumentary: Yes: WNL Wound/Incision: Yes: Clean/Dry, Dressing Dry and Intact Neurological: Yes: Alert, Oriented Psychiatric: Yes: Alert, Oriented Labs: CBC, BMP 11/08/17 07:28 11/08/17 07:28 INR, PTT INR 1.43 (0.82-1.09) H 11/06/17 06:38 Assessment/Plan Problem List - Problems (1) Acute appendicitis with rupture Code(s): K35.2 - ACUTE APPENDICITIS WITH GENERALIZED PERITONITIS (2) Peritonitis Code(s): K65.9 - PERITONITIS, UNSPECIFIED (3) Abdominal pain in female patient Code(s): R10.9 - UNSPECIFIED ABDOMINAL PAIN (4) Dehydration Code(s): E86.0 - DEHYDRATION (5) Emesis, persistent Code(s): R11.10 - VOMITING, UNSPECIFIED plan wbc normal gi function returned will switch to oral abx and watch rest as per primary team
[2017-11-08] MEDS ORDERED: diazePAM 5 MG TABLET PO PRN (16:39)
[2017-11-08] MEDS: AMOX TR/POT CLAV 875MG/125MG TABLETS (FP) PO SCH (16:53)
[2017-11-09] MEDS: oxyCODONE HCL 5 MG TABLET PO PRN ×2 (05:36→13:28)
[2017-11-09] MEDS: ACETAMINOPHEN 325 MG TABLET (FP) PO PRN ×2 (05:36→13:29)
[2017-11-09] MEDS: AMOX TR/POT CLAV 875MG/125MG TABLETS (FP) PO SCH ×2 (08:31→16:43)
[2017-11-09] MEDS: PANTOPRAZOLE SODIUM 40 MG VIAL IVPUSH SCH (11:00)
--- NOTE | 2017-11-09 12:41 | PN ---
Progress Note, Physician Chief Complaint: abdominal pain History of Present Illness: 52 yo female no significant PMH presented to the ED reporting two days of vomiting and abdominal pain. Patient said she ate shrimp yesterday and after eating the shrimp developed abdominal pain and vomiting. s/p laparoscopic appendectomy, has tolerated regular diet, passing flatus, pain is adequately controlled. She is sleeping a bit better. She reports pain is improving at the surgical site. - Current Medication List Current Medications: Active Medications Acetaminophen (Tylenol -) 650 mg PO Q6H PRN PRN Reason: FEVER OR PAIN Last Admin: 11/09/17 05:36 Dose: 650 mg Amoxicillin/Clavulanate Potassium (Augmentin - 875mg Tablet) 1 tab PO BID@0800, 1730 [facility] Last Admin: 11/09/17 08:31 Dose: 1 tab Diazepam (Valium -) 10 mg PO DAILY [facility] Stop: 11/11/17 09:59 Ibuprofen (Motrin -) 600 mg PO Q6H PRN PRN Reason: PAIN LEVEL 1-5 Last Admin: 11/07/17 21:09 Dose: 600 mg Ondansetron HCl (Zofran Injection) 8 mg IVPB Q6H PRN PRN Reason: NAUSEA AND/OR VOMITING Oxycodone HCl (Roxicodone -) 5 mg PO Q6H PRN PRN Reason: PAIN LEVEL 6-10 Last Admin: 11/09/17 05:36 Dose: 5 mg Pantoprazole Sodium (Protonix Iv) 40 mg IVPUSH DAILY [facility] Last Admin: 11/08/17 09:45 Dose: 40 mg - Objective Vital Signs: Vital Signs Temperature 98.3 F 11/09/17 08:00 Pulse Rate 90 11/09/17 08:00 Respiratory Rate 18 11/09/17 08:00 Blood Pressure 120/70 11/09/17 08:00 O2 Sat by Pulse Oximetry (%) 93 L 11/09/17 08:50 Constitutional: Yes: Well Nourished, No Distress, Calm Eyes: Yes: Conjunctiva Clear, EOM Intact HENT: Yes: Atraumatic, Normocephalic Neck: Yes: Supple, Trachea Midline Cardiovascular: Yes: Regular Rate and Rhythm, S1, S2. No: Murmur Respiratory: Yes: Regular, CTA Bilaterally Gastrointestinal: Yes: Normal Bowel Sounds, Soft, Tenderness (periumbilical only ), Other (wounds are clean and dry) ...Rectal Exam: Yes: Deferred Genitourinary: No: CVA Tenderness - Left, CVA Tenderness - Right Musculoskeletal: No: Muscle Pain, Muscle Weakness Integumentary: Yes: Rash (scattered subcentimeter blisters largest being in the upper abdomen) Neurological: Yes: Alert, Oriented Psychiatric: Yes: Alert, Oriented Labs: CBC, BMP 11/08/17 07:28 11/08/17 07:28 INR, PTT INR 1.43 (0.82-1.09) H 11/06/17 06:38 Problem List - Problems (1) Acute appendicitis with rupture Assessment/Plan: 62yo female with ruptured acute appendicitis, associated persistent emesis and dehydration - given the perforation she will require a hospitalization of at least 4 days for IV antibiotic therapy s/p Laparoscopic appendectomy POD#3 voiding, passing gas no BM, using IS, Ambulating in the halls. Wounds look good. low grade fever each night 99. Will change back to IV if persists, new rash, does not appear to be hypersensitivity will request dermatology evaluation advance diet to regular IV antibiotics per ID antiemetic may shower anxiolytic titrated for bedtime adequate analgesia changed to PO GI and DVT prophylaxsis Code(s): K35.2 - ACUTE APPENDICITIS WITH GENERALIZED PERITONITIS (2) Peritonitis Code(s): K65.9 - PERITONITIS, UNSPECIFIED (3) Abdominal pain in female patient Code(s): R10.9 - UNSPECIFIED ABDOMINAL PAIN (4) Dehydration Code(s): E86.0 - DEHYDRATION (5) Emesis, persistent Code(s): R11.10 - VOMITING, UNSPECIFIED
--- NOTE | 2017-11-09 12:43 | PN ---
Progress Note, Physician History of Present Illness: spiked a low grade fever last night currently no complaints - Current Medication List Current Medications: Active Medications Acetaminophen (Tylenol -) 650 mg PO Q6H PRN PRN Reason: FEVER OR PAIN Last Admin: 11/09/17 05:36 Dose: 650 mg Amoxicillin/Clavulanate Potassium (Augmentin - 875mg Tablet) 1 tab PO BID@0800, 1730 [facility] Last Admin: 11/09/17 08:31 Dose: 1 tab Diazepam (Valium -) 10 mg PO DAILY [facility] Stop: 11/11/17 09:59 Ibuprofen (Motrin -) 600 mg PO Q6H PRN PRN Reason: PAIN LEVEL 1-5 Last Admin: 11/07/17 21:09 Dose: 600 mg Ondansetron HCl (Zofran Injection) 8 mg IVPB Q6H PRN PRN Reason: NAUSEA AND/OR VOMITING Oxycodone HCl (Roxicodone -) 5 mg PO Q6H PRN PRN Reason: PAIN LEVEL 6-10 Last Admin: 11/09/17 05:36 Dose: 5 mg Pantoprazole Sodium (Protonix Iv) 40 mg IVPUSH DAILY [facility] Last Admin: 11/08/17 09:45 Dose: 40 mg - Objective Vital Signs: Vital Signs Temperature 98.3 F 11/09/17 08:00 Pulse Rate 90 11/09/17 08:00 Respiratory Rate 18 11/09/17 08:00 Blood Pressure 120/70 11/09/17 08:00 O2 Sat by Pulse Oximetry (%) 93 L 11/09/17 08:50 Constitutional: Yes: No Distress, Calm Cardiovascular: Yes: Regular Rate and Rhythm Respiratory: Yes: Regular, CTA Bilaterally Gastrointestinal: Yes: Normal Bowel Sounds, Soft Musculoskeletal: Yes: WNL Extremities: Yes: WNL Wound/Incision: Yes: Clean/Dry, Dressing Dry and Intact Neurological: Yes: Alert, Oriented Psychiatric: Yes: Alert, Oriented Labs: CBC, BMP 11/08/17 07:28 11/08/17 07:28 INR, PTT INR 1.43 (0.82-1.09) H 11/06/17 06:38 Assessment/Plan Problem List - Problems (1) Acute appendicitis with rupture Code(s): K35.2 - ACUTE APPENDICITIS WITH GENERALIZED PERITONITIS (2) Peritonitis Code(s): K65.9 - PERITONITIS, UNSPECIFIED (3) Abdominal pain in female patient Code(s): R10.9 - UNSPECIFIED ABDOMINAL PAIN (4) Dehydration Code(s): E86.0 - DEHYDRATION (5) Emesis, persistent Code(s): R11.10 - VOMITING, UNSPECIFIED plan watch till the patient is afebrile continue oral abx for now if patient spikes fever then will switch to iv again rest as per primary team
[2017-11-09] MEDS ORDERED: CYCLOBENZAPRINE HCL 10 MG TABLET (FP) PO PRN (17:42)
[2017-11-09] MEDS ORDERED: KETOROLAC TROMETHAMINE 15 MG/ML VIAL IVPUSH PRN (17:46)
[2017-11-10] MEDS: diazePAM 5 MG TABLET PO SCH ×2 (00:17→23:19)
[2017-11-10] MEDS: ACETAMINOPHEN 325 MG TABLET (FP) PO PRN ×2 (00:26→21:18)
[2017-11-10] MEDS: AMOX TR/POT CLAV 875MG/125MG TABLETS (FP) PO SCH ×2 (08:36→17:31)
[2017-11-10] MEDS ORDERED: PIPERACILLIN/TAZOB 3.375 GM/50 ML PRE-DOCKED IVPB ONE (09:49)
[2017-11-10] MEDS ORDERED: PIPERACILLIN/TAZOB 3.375 GM 3.375 GM in DEXTROSE 5%-WATER - 100 ML IVPB ONE (10:00)
--- NOTE | 2017-11-10 10:46 | PATH ---
Surgical Pathology Report Patient Name: MATTHEW VILLELA [facility]. Rec. #: [id number] /Age/Gender: 1965 (Age: 52) / F Account: [id number] Location: [facility] R Taken: 11/06/2017 Received: 11/09/2017 Reported: 11/10/2017 Physicians: Milton Carr M.D. Specimen(s) Received APPENDIX Clinical History Ruptured appendix Final Diagnosis APPENDIX, LAPAROSCOPIC APPENDECTOMY: ACUTE GANGRENOUS APPENDICITIS AND PERIAPPENDICITIS. Electronically Signed Pauly Johnson M.D. Gross Description Received in formalin labeled "appendix," are 2 portions of a ruptured appendix measuring 3.7 and 2.5 cm in length. There is necrotic fat separately received within the same container. The longer portion displays a stapled margin. The outer surfaces are roman wong and necrotic with attached exudate. The presumed distal tip also appears ruptured. Sectioning reveals a necrotic lumen focally containing brown fecal material. The wall of the appendix averages 0.1 cm in thickness. Diver Assistant sections are submitted in one cassette. 11/09/201711/09/2017
[2017-11-10] MEDS: PANTOPRAZOLE SODIUM 40 MG VIAL IVPUSH SCH (11:00)
[2017-11-10 11:10] LABS: BASO % 0.8 % (0-2.0); HEMATOCRIT 29.8 % (32.4-45.2); LYMPH % 14.6 % (8-40); MCH 27.7 pg (25.7-33.7); MCHC 33.8 g/dl (32.0-36.0); MEAN PLT VOLUME 6.9 fl (7.5-11.1); NEUT % 74.6 % (42.8-82.8); PLATELET COUNT 313 K/MM3 (134-434); RBC 3.63 M/mm3 (3.60-5.2); RDW 13.3 % (11.6-15.6); WHITE BLOOD COUNT 7.1 K/mm3 (4.0-10.0)
[2017-11-10 11:42] LABS: ALBUMIN 2.2 g/dl (3.4-5.0); ANION GAP 4 (8-16); BILIRUBIN,TOTAL 0.5 mg/dL (0.2-1.0); BLOOD UREA NITROGEN 6 mg/dL (7-18); CALCIUM 7.6 mg/dL (8.5-10.1); CHLORIDE 103 mmol/L (98-107); CO2 32 mmol/L (21-32); CREATININE 0.5 mg/dL (0.55-1.02); GLUCOSE,RANDOM 101 mg/dL (74-106); POTASSIUM 3.5 mmol/L (3.5-5.1); SGOT/AST 8 U/L (15-37); SGPT/ALT 14 U/L (12-78); SODIUM 139 mmol/L (136-145); TOT PROT 5.6 g/dl (6.4-8.2)
[2017-11-10 11:43] LABS: ALK PHOS 65 U/L (45-117)
--- NOTE | 2017-11-10 17:07 | PN ---
Progress Note, Physician History of Present Illness: patient spiked a fever to 101.3 has some abd pain incisions look good patient has developed a small pustule which is fluid filled on the left side of the abdomen she has also some small red dots on the back of the neck - Current Medication List Current Medications: Active Medications Acetaminophen (Tylenol -) 650 mg PO Q6H PRN PRN Reason: FEVER OR PAIN Last Admin: 11/10/17 00:26 Dose: 650 mg Amoxicillin/Clavulanate Potassium (Augmentin - 875mg Tablet) 1 tab PO BID@0800, 1730 [facility] Last Admin: 11/10/17 08:36 Dose: 1 tab Cyclobenzaprine HCl (Flexeril -) 5 mg PO TID PRN PRN Reason: MUSCLE SPASMS Diazepam (Valium -) 10 mg PO HS [facility] Last Admin: 11/10/17 00:17 Dose: 10 mg Ibuprofen (Motrin -) 600 mg PO Q6H PRN PRN Reason: PAIN LEVEL 1-5 Last Admin: 11/07/17 21:09 Dose: 600 mg Ketorolac Tromethamine (Toradol Injection -) 15 mg IVPUSH Q6H PRN PRN Reason: MUSCLE SPASMS Stop: 11/14/17 17:45 Ondansetron HCl (Zofran Injection) 8 mg IVPB Q6H PRN PRN Reason: NAUSEA AND/OR VOMITING Oxycodone HCl (Roxicodone -) 5 mg PO Q6H PRN PRN Reason: PAIN LEVEL 6-10 Last Admin: 11/09/17 13:28 Dose: 5 mg Pantoprazole Sodium (Protonix Iv) 40 mg IVPUSH DAILY [facility] Last Admin: 11/09/17 11:00 Dose: Not Given - Objective Vital Signs: Vital Signs Temperature 98.1 F 11/10/17 10:13 Pulse Rate 91 H 11/10/17 08:00 Respiratory Rate 18 11/10/17 08:00 Blood Pressure 118/67 11/10/17 08:00 O2 Sat by Pulse Oximetry (%) 94 L 11/10/17 09:00 Constitutional: Yes: Calm, Mild Distress Cardiovascular: Yes: Regular Rate and Rhythm Gastrointestinal: Yes: Normal Bowel Sounds, Soft Musculoskeletal: Yes: WNL Extremities: Yes: WNL Integumentary: Yes: Other (small pustule on the abdomen left side) Neurological: Yes: Alert, Oriented Psychiatric: Yes: Alert Labs: CBC, BMP 11/10/17 10:45 11/10/17 10:45 INR, PTT INR 1.43 (0.82-1.09) H 11/06/17 06:38 Assessment/Plan Problem List - Problems (1) Acute appendicitis with rupture Code(s): K35.2 - ACUTE APPENDICITIS WITH GENERALIZED PERITONITIS (2) Peritonitis Code(s): K65.9 - PERITONITIS, UNSPECIFIED (3) Abdominal pain in female patient Code(s): R10.9 - UNSPECIFIED ABDOMINAL PAIN (4) Dehydration Code(s): E86.0 - DEHYDRATION (5) Emesis, persistent Code(s): R11.10 - VOMITING, UNSPECIFIED infected pustule plan start back on iv abx i am worried that this could be infected pustule and there is a chance that this could be infected or mrsa i have spoke about this to the family--who has an argumentative attitude and the patient mentions that she will not take it untill i have given her a 100 percent diagnosis i have told her that i cannot be sure but my suggestion would be to take the medications patients wbc is normal and i will leave that choice with the primary team patient is also awaiting to see the caterer's aide i think the rash on the back could be contact dermatitis while the pustule in the front could be infected as i mentioned above also if wbc goes up or patient continues to spike fevers then ct scan of abdomen would suggest that doxy 100 mg bid to be started
--- NOTE | 2017-11-10 17:12 | CONSULT ---
Consultation: REQUESTING PROVIDER: CONSULT REQUEST: We have been asked to medically evaluate this patient status post appendectomy. HISTORY OF PRESENT ILLNESS: 52 year-old female with a PMH significant for ruptured appendix s/p lap appendectomy, POD #4. Patient complains of RLQ pain that is sharp, severe, and intermittent for the past 48 hours. Patient also complains of a blister on her upper abdomen, and a rash across her back and bilateral thighs. REVIEW OF SYSTEMS: CONSTITUTIONAL: +fever, weakness, loss of appetite Absent: chills, diaphoresis, weight change HEENT: Absent: rhinorrhea, nasal congestion, throat pain, throat swelling, difficulty swallowing, mouth swelling, ear pain, eye pain, visual changes CARDIOVASCULAR: Absent: chest pain, syncope, palpitations, irregular heart rate, lightheadedness , peripheral edema RESPIRATORY: Absent: cough, shortness of breath, dyspnea with exertion, orthopnea, wheezing, stridor, hemoptysis GASTROINTESTINAL: +one episdoe earlier today loose stools, RLQ pain x 48 hours Absent: abdominal distension, nausea, vomiting, constipation, melena, hematochezia GENITOURINARY: Absent: dysuria, frequency, urgency, hesitancy, hematuria, flank pain, genital pain MUSCULOSKELETAL: Absent: myalgia, arthralgia, joint swelling, back pain, neck pain SKIN: Absent: rash, itching, pallor HEMATOLOGIC/IMMUNOLOGIC: Absent: easy bleeding, easy bruising, lymphadenopathy, frequent infections ENDOCRINE: Absent: unexplained weight gain, unexplained weight loss, heat intolerance, cold intolerance NEUROLOGIC: Absent: headache, focal weakness or paresthesias, dizziness, unsteady gait, seizure, mental status changes, bladder or bowel incontinence PSYCHIATRIC: Absent: anxiety, depression, suicidal or homicidal ideation, hallucinations. PHYSICAL EXAMINATION Vital Signs - 24 hr 11/09/17 11/10/17 11/10/17 21:00 00:27 02:00 Temperature 97.7 F 101.6 F H 99.5 F Pulse Rate 86 90 Respiratory 20 20 Rate Blood Pressure 120/70 127/69 O2 Sat by Pulse Oximetry (%) 11/10/17 11/10/17 11/10/17 06:00 08:00 09:00 Temperature 99.1 F 99.9 F H Pulse Rate 85 91 H Respiratory 21 18 Rate Blood Pressure 116/65 118/67 O2 Sat by Pulse 94 L Oximetry (%) 11/10/17 10:13 Temperature 98.1 F Pulse Rate Respiratory Rate Blood Pressure O2 Sat by Pulse Oximetry (%) GENERAL: Awake, alert, and fully oriented, in mild distress secondary to abdominal pain HEAD: Normal with no signs of trauma. EYES: Pupils equal, round and reactive to light, extraocular movements intact, sclera anicteric, conjunctiva clear. No lid lag. EARS, NOSE, THROAT: Ears normal, nares patent, oropharynx clear without exudates. Moist mucous membranes. NECK: Normal range of motion, supple without lymphadenopathy, JVD, or masses. LUNGS: Breath sounds equal, clear to auscultation bilaterally. No wheezes, and no crackles. No accessory muscle use. HEART: Regular rate and rhythm, normal S1 and S2 without murmur, rub or gallop. ABDOMEN: ++ guarding, distended; surgical ports appear clean and dry, edges well approximated, no erythema or discharge MUSCULOSKELETAL: Normal range of motion at all joints. No bony deformities or tenderness. No CVA tenderness. UPPER EXTREMITIES: 2+ pulses, warm, well-perfused. No cyanosis. No clubbing. Cap refill <2 seconds. No peripheral edema. LOWER EXTREMITIES: 2+ pulses, warm, well-perfused. No calf tenderness. No peripheral edema. NEUROLOGICAL: Cranial nerves II-XII intact. Normal speech. Normal gait. PSYCHIATRIC: Cooperative. Good eye contact. Appropriate mood and affect. SKIN: Warm, dry, normal turgor, no rashes or lesions noted. Laboratory Results - last 24 hr 11/10/17 11/10/17 10:45 10:45 WBC 7.1 RBC 3.63 Hgb 10.0 L Hct 29.8 L MCV 82.0 MCH 27.7 MCHC 33.8 RDW 13.3 Plt Count 313 D MPV 6.9 L D Neutrophils % 74.6 Lymphocytes % 14.6 D Monocytes % 9.0 Eosinophils % 1.0 Basophils % 0.8 Sodium 139 Potassium 3.5 Chloride 103 Carbon Dioxide 32 Anion Gap 4 L BUN 6 L D Creatinine 0.5 L D Creat Clearance w eGFR > 60 Random Glucose 101 Calcium 7.6 L Total Bilirubin 0.5 D AST 8 L ALT 14 Alkaline Phosphatase 65 Total Protein 5.6 L Albumin 2.2 L Active Medications Generic Name Dose Route Start Last Admin Trade Name Freq PRN Reason Stop Dose Admin Acetaminophen 650 mg 11/06/17 10:57 11/10/17 00:26 Tylenol - PO 650 mg Q6H PRN Administration FEVER OR PAIN Amoxicillin/Clavulanate Potassium 1 tab 11/08/17 17:30 11/10/17 08:36 Augmentin - 875mg Tablet PO 1 tab BID@0800,1730 CESAR Administration Cyclobenzaprine HCl 5 mg 11/09/17 17:42 Flexeril - PO TID PRN MUSCLE SPASMS Diazepam 10 mg 11/10/17 00:15 11/10/17 00:17 Valium - PO 10 mg HS CESAR Administration Ibuprofen 600 mg 11/06/17 10:57 11/07/17 21:09 Motrin - PO 600 mg Q6H PRN Administration PAIN LEVEL 1-5 Ketorolac Tromethamine 15 mg 11/09/17 17:46 Toradol Injection - IVPUSH 11/14/17 17:45 Q6H PRN MUSCLE SPASMS Ondansetron HCl 8 mg 11/06/17 10:57 Zofran Injection IVPB Q6H PRN NAUSEA AND/OR VOMITING Oxycodone HCl 5 mg 11/07/17 13:04 11/09/17 13:28 Roxicodone - PO 5 mg Q6H PRN Administration PAIN LEVEL 6-10 Pantoprazole Sodium 40 mg 11/07/17 10:00 11/09/17 11:00 Protonix Iv IVPUSH Not Given DAILY [facility] ASSESSMENT/PLAN 52 year-old female with a PMH significant for ruptured appendix s/p lap appendectomy, POD #4. Ruptured appendix s/p lap appendectomy --POD #4 with severe RLQ pain x 48 hours --spiked fever last night --CT abdomen and pelvis ordered --for now continue PO antibiotics per ID Rash --macular rash across back with some fluid-filled lesions --derm consult previously requested, pending Blister --1cm fluid filled blister on upper abdomen --will not culture, defer to dermatology's exam Dispo: We will continue to follow the patient. Thank you for this consultative opportunity. Visit type - Emergency Visit Emergency Visit: Yes ED Registration Date: 11/06/17 Care time: The patient presented to the Emergency Department on the above date and was hospitalized for further evaluation of their emergent condition. - New Patient This patient is new to me today: Yes Date on this admission: 11/11/17 - Critical Care Critical Care patient: No
--- NOTE | 2017-11-10 18:17 | CONSULT ---
Consult Consult Specialty:: Dermatology - History Source History Provided By: Patient, Family Member - Past Medical History ...: No - Past Surgical History Additional Surgical History: breast augmentation, excision of lipoma back - Alcohol/Substance Use Hx Alcohol Use: Yes (socially ) History of Substance Use: reports: None - Smoking History Smoking history: Former smoker Have you smoked in the past 12 months: No - Social History ADL: Independent History of Recent Travel: No Home Medications - Allergies Allergies/Adverse Reactions: Allergies Allergy/AdvReac Type Severity Reaction Status Date / Time No Known Allergies Allergy Unverified 11/05/17 23:23 - Home Medications Home Medications: Ambulatory Orders NK [No Known Home Medication] 11/05/17 Physical Exam Vital Signs: Vital Signs Temperature 98.1 F 11/10/17 10:13 Pulse Rate 91 H 11/10/17 08:00 Respiratory Rate 18 11/10/17 08:00 Blood Pressure 118/67 11/10/17 08:00 O2 Sat by Pulse Oximetry (%) 94 L 11/10/17 09:00 Labs: CBC, BMP 11/10/17 10:45 11/10/17 10:45 Assessment/Plan Patient had surgery for ruptured appendix, Called to see patient for small vesicles on adbomen and macular papular eruption on upper thighs, back and chest after IV antibiotics. On exam she has pus and fluid filled vesicles under steri strips covering incision sites for abdominal surgery consistent with bullous impetigo. area cleaned steristrips trimmed back and bacterial culture of pustule obtained. ordered bactroban ointment to affected area on abdomen BID after cleaning with saline. For macular papular eruption on body apply Triamcinolone cream BID Discussed with Dr Sheffield will start Doxycycline 100 mg BID Discussed above with patient and her daughter.
[2017-11-10] MEDS: TRIAMCINOLONE ACET 0.1% CREAM 15 GM TUBE TP SCH (21:15)
[2017-11-10] MEDS: DOXYCYCLINE HYCLATE 100 MG CAPSULE PO SCH (21:15)
[2017-11-10] MEDS: MUPIROCIN 2% TOPICAL OINTMENT 22 GM TUBE TP SCH (21:16)
[2017-11-10] MEDS ORDERED: diazePAM 5 MG TABLET PO SCH (22:00)
--- NOTE | 2017-11-11 03:44 | HOSP ---
Subjective - Review of Symptoms Events since last encounter: Received TC from Dr. Alexandre, radiology regarding pt CT scan. He reports pt with multiple abscesses in abdomen: R lateral abd, Cortés's pouch, and possibly gall bladder fossa. THe largest measres 3-4cm wide by 7-8cm long. TC placed to Dr. Gomez. Discussed findings with her. She states that these findings as well as low grade temp are not unexpected with a ruptured appendix 3 days postop and advises to continue monitoring the patient. Discussed findings with Dr. Sheffield as well who recommended continue po antibiotics. PCP to be informed of findings on report in AM. Will cont to monitor VS q4h. Physical Examination Vital Signs: Vital Signs Temperature 99 F 11/10/17 23:21 Pulse Rate 86 11/10/17 21:13 Respiratory Rate 20 11/10/17 21:13 Blood Pressure 135/56 11/10/17 21:13 O2 Sat by Pulse Oximetry (%) 94 L 11/10/17 09:00 Labs: CBC, BMP 11/10/17 10:45 11/10/17 10:45
--- NOTE | 2017-11-11 09:58 | PN ---
Progress Note, Physician Chief Complaint: abdominal pain History of Present Illness: 52 yo female no significant PMH presented to the ED reporting two days of vomiting and abdominal pain. Patient said she ate shrimp yesterday and after eating the shrimp developed abdominal pain and vomiting. s/p laparoscopic appendectomy, has tolerated regular diet, passing flatus, pain is adequately controlled. She is sleeping a bit better. She reports pain is improving at the surgical site. - Current Medication List Current Medications: Active Medications Acetaminophen (Tylenol -) 650 mg PO Q6H PRN PRN Reason: FEVER OR PAIN Last Admin: 11/10/17 21:18 Dose: 650 mg Cyclobenzaprine HCl (Flexeril -) 5 mg PO TID PRN PRN Reason: MUSCLE SPASMS Diazepam (Valium -) 10 mg PO HS [facility] Last Admin: 11/10/17 23:19 Dose: 10 mg Doxycycline Hyclate (Vibramycin -) 100 mg PO BID@1000,1800 [facility] Last Admin: 11/10/17 21:15 Dose: 100 mg Ibuprofen (Motrin -) 600 mg PO Q6H PRN PRN Reason: PAIN LEVEL 1-5 Last Admin: 11/07/17 21:09 Dose: 600 mg Ketorolac Tromethamine (Toradol Injection -) 15 mg IVPUSH Q6H PRN PRN Reason: MUSCLE SPASMS Stop: 11/14/17 17:45 Mupirocin (Bactroban 2% Ointment -) 1 applic TP BID [facility] Last Admin: 11/10/17 21:16 Dose: 1 applic Ondansetron HCl (Zofran Injection) 8 mg IVPB Q6H PRN PRN Reason: NAUSEA AND/OR VOMITING Oxycodone HCl (Roxicodone -) 5 mg PO Q6H PRN PRN Reason: PAIN LEVEL 6-10 Last Admin: 11/09/17 13:28 Dose: 5 mg Pantoprazole Sodium (Protonix -) 40 mg PO DAILY [facility] Triamcinolone Acetonide (Aristocort 0.1% Cream -) 1 applic TP BID [facility] Last Admin: 11/10/17 21:15 Dose: 1 applic - Objective Vital Signs: Vital Signs Temperature 98.9 F 11/11/17 08:36 Pulse Rate 83 11/11/17 08:36 Respiratory Rate 18 11/11/17 08:36 Blood Pressure 110/73 11/11/17 08:36 O2 Sat by Pulse Oximetry (%) 95 11/11/17 08:44 Constitutional: Yes: Well Nourished, No Distress, Calm Eyes: Yes: Conjunctiva Clear, EOM Intact HENT: Yes: Atraumatic, Normocephalic Neck: Yes: Supple, Trachea Midline Cardiovascular: Yes: Regular Rate and Rhythm, S1, S2. No: Murmur Respiratory: Yes: Regular, CTA Bilaterally Gastrointestinal: Yes: Normal Bowel Sounds, Soft, Tenderness (minimal periumbilical) ...Rectal Exam: Yes: Deferred Genitourinary: No: CVA Tenderness - Left, CVA Tenderness - Right Musculoskeletal: No: Muscle Pain, Muscle Weakness Extremities: No: Cool, Cyanosis Edema: No Peripheral Pulses WNL: Yes Peripheral Pulses: Left Radial: 2+, Right Radial: 2+, Left Doralis Pedis: 2+, Right Dorsalis Pedis: 2+, Left Femoral: 2+, Right Femoral: 2+ Integumentary: Yes: Rash (maculopapular rash abdomen and back ipetigenous?). No : Jaundice Wound/Incision: Yes: Clean/Dry, Well Approximated, Steri Strips Neurological: Yes: Alert, Oriented Psychiatric: Yes: Alert, Oriented Labs: CBC, BMP 11/10/17 10:45 11/10/17 10:45 INR, PTT INR 1.43 (0.82-1.09) H 11/06/17 06:38 Problem List - Problems (1) Acute appendicitis with rupture Assessment/Plan: 62yo female with ruptured acute appendicitis s/p Lap Appendectomy POD#5 doing well, tolerating diet, having normal bowel movements, steady decline in leukocytosis 13.7 now 7.1, on PO doxycycline now per ID and dermatology consults (very much appreciated). Only persistent low grade fevers at night, Intra-abdominal collections seen on CT of Abdomen and pelvis. IR for aspiration versus drainage of collection Plan for discharge home in 1-2 days on doxycycline Local rash care anxiolytic titrated for bedtime adequate analgesia Code(s): K35.2 - ACUTE APPENDICITIS WITH GENERALIZED PERITONITIS (2) Peritonitis Code(s): K65.9 - PERITONITIS, UNSPECIFIED (3) Abdominal pain in female patient Code(s): R10.9 - UNSPECIFIED ABDOMINAL PAIN (4) Dehydration Code(s): E86.0 - DEHYDRATION (5) Emesis, persistent Code(s): R11.10 - VOMITING, UNSPECIFIED
[2017-11-11] MEDS: DOXYCYCLINE HYCLATE 100 MG CAPSULE PO SCH ×2 (10:00→17:27)
[2017-11-11] MEDS: PANTOPRAZOLE 40 MG TABLET (FP) PO SCH (10:00)
[2017-11-11] MEDS: oxyCODONE HCL 5 MG TABLET PO PRN ×2 (10:07→16:31)
[2017-11-11] MEDS: ACETAMINOPHEN 325 MG TABLET (FP) PO PRN ×2 (10:08→16:31)
[2017-11-11] MEDS: MUPIROCIN 2% TOPICAL OINTMENT 22 GM TUBE TP SCH ×2 (10:10→22:00)
[2017-11-11] MEDS: TRIAMCINOLONE ACET 0.1% CREAM 15 GM TUBE TP SCH ×2 (10:10→22:01)
[2017-11-11 12:45] LABS: INR 1.3 (0.82-1.09); PROTHROMBIN TIME (PATIENT) 14.7 SEC (9.98-11.88)
--- NOTE | 2017-11-11 16:22 | PN ---
Physical Exam: SUBJECTIVE: Patient seen and examined. She reports feeling well, denies any acute abdominal pain, nausea or vomiting. OBJECTIVE: Vital Signs Period Temp Pulse Resp BP Sys/Mark Pulse Ox Last 24 Hr 98.9 F-100 F 66-92 17-26 107-135/52-73 94-99 GENERAL: The patient is awake, alert, and fully oriented, in no acute distress. HEAD: Normal with no signs of trauma. EYES: PERRL, extraocular movements intact, sclera anicteric, conjunctiva clear. No ptosis. NECK: Trachea midline, full range of motion, supple. ABDOMEN: Soft, nontender, s/p appendectomy EXTREMITIES: 2+ pulses, warm, well-perfused, no edema. NEUROLOGICAL: Cranial nerves II through XII grossly intact. Normal speech, gait not observed. PSYCH: Normal mood, normal affect. SKIN: Warm, dry, normal turgor, no rashes or lesions noted Laboratory Results - last 24 hr 11/11/17 11:50 PT with INR 14.70 H INR 1.30 H Active Medications Generic Name Dose Route Start Last Admin Trade Name Freq PRN Reason Stop Dose Admin Acetaminophen 650 mg 11/06/17 10:57 11/11/17 10:08 Tylenol - PO 650 mg Q6H PRN Administration FEVER OR PAIN Cyclobenzaprine HCl 5 mg 11/09/17 17:42 Flexeril - PO TID PRN MUSCLE SPASMS Diazepam 10 mg 11/10/17 00:15 11/10/17 23:19 Valium - PO 10 mg HS CESAR Administration Doxycycline Hyclate 100 mg 11/10/17 19:15 11/11/17 10:00 Vibramycin - PO 100 mg BID@1000,1800 CESAR Administration Ibuprofen 600 mg 11/06/17 10:57 11/07/17 21:09 Motrin - PO 600 mg Q6H PRN Administration PAIN LEVEL 1-5 Ketorolac Tromethamine 15 mg 11/09/17 17:46 Toradol Injection - IVPUSH 11/14/17 17:45 Q6H PRN MUSCLE SPASMS Mupirocin 1 applic 11/10/17 22:00 11/11/17 10:10 Bactroban 2% Ointment - TP 1 applic BID CESAR Administration Ondansetron HCl 8 mg 11/06/17 10:57 Zofran Injection IVPB Q6H PRN NAUSEA AND/OR VOMITING Oxycodone HCl 5 mg 11/07/17 13:04 11/11/17 10:07 Roxicodone - PO 5 mg Q6H PRN Administration PAIN LEVEL 6-10 Pantoprazole Sodium 40 mg 11/11/17 10:00 11/11/17 10:00 Protonix - PO 40 mg DAILY CESAR Administration Triamcinolone Acetonide 1 applic 11/10/17 22:00 11/11/17 10:10 Aristocort 0.1% Cream - TP 1 applic BID CESAR Administration ASSESSMENT/PLAN: Patient is a 52 year old female with a significant past medical history of ruptured appendix s/p lap appendectomy, POD #5. GI: Ruptured appendix s/p lap appendectomy/POD #5 continues to c/o of pain, having low grade fevers CT abdomen and pelvis shows intraabdominal collections seen on Ct of abd. and pelvis IR consulted by surgery for IR for possible drainage of collections Skin: Rash/macular rash on back Derm consulted and following Bullous impetigo as per derm Bacterial cultures sent, Triamcinolone cream BID Started on Doxy 100mg BID F.E.N. Fluids: tolerating PO Electrolytes: labs in a.m. Nutrition: regular diet Prophylaxis: DVT: SCDs GI: Protonix Disposition: full code. Visit type - Emergency Visit Emergency Visit: Yes ED Registration Date: 11/06/17 Care time: The patient presented to the Emergency Department on the above date and was hospitalized for further evaluation of their emergent condition. - New Patient This patient is new to me today: Yes Date on this admission: 11/11/17 - Critical Care Critical Care patient: No - Discharge Referral Referred to [facility] Med P.C.: No
[2017-11-11] MEDS: diazePAM 5 MG TABLET PO SCH (22:03)
[2017-11-12 08:52] LABS: BASO % 0.8 % (0-2.0); EOS % 2.1 % (0-4.5); HEMATOCRIT 29.9 % (32.4-45.2); LYMPH % 18.4 % (8-40); MCH 27.2 pg (25.7-33.7); MCHC 33.4 g/dl (32.0-36.0); MEAN CELL VOLUME 81.5 fl (80-96); MONO % 10.8 % (3.8-10.2); NEUT % 67.9 % (42.8-82.8); PLATELET COUNT 369 K/MM3 (134-434); RBC 3.67 M/mm3 (3.60-5.2); RDW 13.2 % (11.6-15.6); WHITE BLOOD COUNT 7.2 K/mm3 (4.0-10.0)
[2017-11-12 09:10] LABS: CHLORIDE 104 mmol/L (98-107); POTASSIUM 3.7 mmol/L (3.5-5.1); SODIUM 138 mmol/L (136-145)
[2017-11-12 09:35] LABS: ALBUMIN 2.3 g/dl (3.4-5.0); ALK PHOS 59 U/L (45-117); ANION GAP 8 (8-16); BILIRUBIN,TOTAL 0.4 mg/dL (0.2-1.0); BLOOD UREA NITROGEN 7 mg/dL (7-18); CALCIUM 8.3 mg/dL (8.5-10.1); CO2 26 mmol/L (21-32); CREATININE 0.4 mg/dL (0.55-1.02); GLUCOSE,RANDOM 96 mg/dL (74-106); SGOT/AST 16 U/L (15-37); SGPT/ALT 18 U/L (12-78); TOT PROT 5.6 g/dl (6.4-8.2)
[2017-11-12] MEDS ORDERED: KETOROLAC TROMETHAMINE 30 MG/1 ML VIAL IVPUSH ONE (10:10)
--- NOTE | 2017-11-12 10:25 | DS ---
Physical Examination Vital Signs: Vital Signs Temperature 98.6 F 11/12/17 06:00 Pulse Rate 90 11/12/17 06:00 Respiratory Rate 20 11/12/17 06:00 Blood Pressure 124/72 11/12/17 06:00 O2 Sat by Pulse Oximetry (%) 94 L 11/11/17 20:03 Vital Signs Period Temp Pulse Resp BP Sys/Mark Pulse Ox Last 24 Hr 97.6 F-99.6 F 80-92 17-26 107-124/52-72 94-99 Findings/Remarks: s/p Laparoscopic appendectomy POD7, S/p IR drainage of collection POD1, tolerating diet, pain is controlled, Drainage is minimal from IR catheter. Ambulating, voiding, normal bowel habits. Constitutional: Yes: Well Nourished, No Distress, Calm Eyes: Yes: Conjunctiva Clear, EOM Intact HENT: Yes: Atraumatic, Normocephalic Cardiovascular: Yes: Regular Rate and Rhythm, S1, S2 Respiratory: Yes: Regular, CTA Bilaterally Gastrointestinal: Yes: Normal Bowel Sounds, Soft ...Rectal Exam: No: Deferred Renal/: No: CVA Tenderness - Left, CVA Tenderness - Right Edema: No Peripheral Pulses WNL: Yes Peripheral Pulses: Left Doralis Pedis: 2+, Right Dorsalis Pedis: 2+ Neurological: Yes: Alert, Oriented Psychiatric: Yes: Alert, Oriented Labs: CBC, BMP 11/12/17 08:15 11/12/17 08:15 Discharge Summary Reason For Visit: RUPTURED APPENDIX ruptured appendicitis Procedures: Principal: laparoscopic appendectomy Other Procedures: image guided drainage of intra-abdominal collection Hospital Course: 52 yo female no significant PMH presented to the ED reporting two days of vomiting and abdominal pain. Patient said she ate shrimp yesterday and after eating the shrimp developed abdominal pain and vomiting. Found to have a ruptured appendicitis by CT scan. Taken for laparoscopic appendectomy, taolerated procedure well. Admitted for IV antibiotics. Had low grade fevers 99 -100. Repeat CT scan showed intra-abdominal collection which was drained by IR. Now on oral antibiotics. Stable for discharge home. Condition: Improved - Instructions Diet, Activity, Other Instructions: Postoperative instructions: You had a laparoscopic appendectomy on by Dr. Milton Carr of [facility]. Activity: Resume your usual activities gradually, but no heavy exertion or lifting more than 10-15 pounds for 1 month. You may shower daily starting then, just pat the incision areas dry. Eat lightly at first, but advance to your usual diet as tolerated. Pain: For pain, you may use and alternate Tylenol (acetaminophen) and/or ibuprofen every 6 hours each as needed; this means that you can take one OR the other at 3-hour intervals. If you are prescribed a Tylenol/narcotic combination for severe pain, use it instead of plain Tylenol as needed and switch back when your pain starts decreasing. Do not take more than 4000mg of acetaminophen in a day. Take medications as prescribed or indicated on the labeling. Percocet provided for break though pain 6-10as needed, Valium provided for insomnia as needed. Follow-up: Call Dr. Carr' office at [phone] to make your postop appointment (Wednesday 1 weeks after discharge). Clinic is held in the [facility] on the first floor of [facility]. Call the office if you have: * increasing pain not responsive to pain medication * fever of 101F or higher * vomiting * unusual or increasing bleeding or drainage from wounds * increasing redness or swelling at wound sites * inability to urinate Also, see your primary medical doctor within 1-2 weeks. Disposition: HOME - Home Medications Comprehensive Discharge Medication List: Ambulatory Orders NK [No Known Home Medication] 11/05/17
[2017-11-12] MEDS: PANTOPRAZOLE 40 MG TABLET (FP) PO SCH (10:30)
[2017-11-12] MEDS: DOXYCYCLINE HYCLATE 100 MG CAPSULE PO SCH (10:30)
[2017-11-12] MEDS: MUPIROCIN 2% TOPICAL OINTMENT 22 GM TUBE TP SCH (10:31)
[2017-11-12] MEDS: TRIAMCINOLONE ACET 0.1% CREAM 15 GM TUBE TP SCH (10:31)
[2017-11-12] MEDS: ACETAMINOPHEN 325 MG TABLET (FP) PO PRN (10:38)
[2017-11-12] MEDS: oxyCODONE HCL 5 MG TABLET PO PRN (10:38)
--- NOTE | 2017-11-12 11:11 | PN ---
Progress Note, Physician History of Present Illness: patient says she is feeling better no new issues patient underwent drainage of the collection by ir currently has a drainage tube in place remained afebrile - Current Medication List Current Medications: Active Medications Acetaminophen (Tylenol -) 650 mg PO Q6H PRN PRN Reason: FEVER OR PAIN Last Admin: 11/12/17 10:38 Dose: 650 mg Cyclobenzaprine HCl (Flexeril -) 5 mg PO TID PRN PRN Reason: MUSCLE SPASMS Diazepam (Valium -) 10 mg PO HS [facility] Last Admin: 11/11/17 22:03 Dose: 10 mg Doxycycline Hyclate (Vibramycin -) 100 mg PO BID@1000,1800 [facility] Last Admin: 11/12/17 10:30 Dose: 100 mg Ibuprofen (Motrin -) 600 mg PO Q6H PRN PRN Reason: PAIN LEVEL 1-5 Last Admin: 11/07/17 21:09 Dose: 600 mg Mupirocin (Bactroban 2% Ointment -) 1 applic TP BID [facility] Last Admin: 11/12/17 10:31 Dose: 1 applic Ondansetron HCl (Zofran Injection) 8 mg IVPB Q6H PRN PRN Reason: NAUSEA AND/OR VOMITING Oxycodone HCl (Roxicodone -) 5 mg PO Q6H PRN PRN Reason: PAIN LEVEL 6-10 Last Admin: 11/12/17 10:38 Dose: 5 mg Pantoprazole Sodium (Protonix -) 40 mg PO DAILY [facility] Last Admin: 11/12/17 10:30 Dose: 40 mg Triamcinolone Acetonide (Aristocort 0.1% Cream -) 1 applic TP BID [facility] Last Admin: 11/12/17 10:31 Dose: 1 applic - Objective Vital Signs: Vital Signs Temperature 98.6 F 11/12/17 06:00 Pulse Rate 90 11/12/17 06:00 Respiratory Rate 20 11/12/17 06:00 Blood Pressure 124/72 11/12/17 06:00 O2 Sat by Pulse Oximetry (%) 94 L 11/11/17 20:03 Constitutional: Yes: No Distress, Calm Cardiovascular: Yes: Regular Rate and Rhythm Respiratory: Yes: Regular, CTA Bilaterally Gastrointestinal: Yes: Hypoactive Bowel Sounds, Other (drainage tube in place rt side) Musculoskeletal: Yes: WNL Extremities: Yes: WNL Wound/Incision: Yes: Dressing Dry and Intact Neurological: Yes: Alert, Oriented Psychiatric: Yes: Alert, Oriented Labs: CBC, BMP 11/12/17 08:15 11/12/17 08:15 INR, PTT INR 1.30 (0.82-1.09) H 11/11/17 11:50 - ....Imaging Cat Scan: Report Reviewed, Image Reviewed Assessment/Plan Problem List - Problems (1) Acute appendicitis with rupture Code(s): K35.2 - ACUTE APPENDICITIS WITH GENERALIZED PERITONITIS (2) Peritonitis Code(s): K65.9 - PERITONITIS, UNSPECIFIED (3) Abdominal pain in female patient Code(s): R10.9 - UNSPECIFIED ABDOMINAL PAIN (4) Dehydration Code(s): E86.0 - DEHYDRATION (5) Emesis, persistent Code(s): R11.10 - VOMITING, UNSPECIFIED infected pustule plan continue doxy will give it for another week dermatology on case rest as per primary team
[2017-11-12 11:42] VITALS: BP 134/76; PULSE 82; TEMP 99.6
--- NOTE | 2017-11-12 12:18 | PN ---
Physical Exam: SUBJECTIVE: Patient seen and examined at the bedside. Denies abdominal pain, had mild pain overnight at the surgical site. OBJECTIVE: For discharge home today with close surgical follow up + bowel sounds, dressing c/d/i SUZETTE drain with scant sero sang drainage Vital Signs Period Temp Pulse Resp BP Sys/Mark Pulse Ox Last 24 Hr 97.6 F-99.6 F 80-92 17-26 107-134/52-76 94-99 GENERAL: The patient is awake, alert, and fully oriented, in no acute distress. HEAD: Normal with no signs of trauma. EYES: PERRL, extraocular movements intact, sclera anicteric, conjunctiva clear. No ptosis. NECK: Trachea midline, full range of motion, supple. ABDOMEN: Soft, nontender, s/p appendectomy, +suzette drain (right upper quad) in place with sero sang drainage, abdomen soft + bowel sounds EXTREMITIES: 2+ pulses, warm, well-perfused, no edema. NEUROLOGICAL: Cranial nerves II through XII grossly intact. Normal speech, steady gait PSYCH: Normal mood, normal affect. Laboratory Results - last 24 hr 11/11/17 11/12/17 11/12/17 11:50 08:15 08:15 WBC 7.2 RBC 3.67 Hgb 10.0 L Hct 29.9 L MCV 81.5 MCH 27.2 MCHC 33.4 RDW 13.2 Plt Count 369 MPV 7.0 L Neutrophils % 67.9 Lymphocytes % 18.4 D Monocytes % 10.8 H Eosinophils % 2.1 D Basophils % 0.8 PT with INR 14.70 H INR 1.30 H Sodium 138 Potassium 3.7 Chloride 104 Carbon Dioxide 26 Anion Gap 8 BUN 7 Creatinine 0.4 L Creat Clearance w eGFR > 60 Random Glucose 96 Calcium 8.3 L Total Bilirubin 0.4 AST 16 D ALT 18 D Alkaline Phosphatase 59 Total Protein 5.6 L Albumin 2.3 L Active Medications Generic Name Dose Route Start Last Admin Trade Name Freq PRN Reason Stop Dose Admin Acetaminophen 650 mg 11/06/17 10:57 11/12/17 10:38 Tylenol - PO 650 mg Q6H PRN Administration FEVER OR PAIN Cyclobenzaprine HCl 5 mg 11/09/17 17:42 Flexeril - PO TID PRN MUSCLE SPASMS Diazepam 10 mg 11/10/17 00:15 11/11/17 22:03 Valium - PO 10 mg HS CESAR Administration Doxycycline Hyclate 100 mg 11/10/17 19:15 11/12/17 10:30 Vibramycin - PO 100 mg BID@1000,1800 CESAR Administration Ibuprofen 600 mg 11/06/17 10:57 11/07/17 21:09 Motrin - PO 600 mg Q6H PRN Administration PAIN LEVEL 1-5 Mupirocin 1 applic 11/10/17 22:00 11/12/17 10:31 Bactroban 2% Ointment - TP 1 applic BID CESAR Administration Ondansetron HCl 8 mg 11/06/17 10:57 Zofran Injection IVPB Q6H PRN NAUSEA AND/OR VOMITING Oxycodone HCl 5 mg 11/07/17 13:04 11/12/17 10:38 Roxicodone - PO 5 mg Q6H PRN Administration PAIN LEVEL 6-10 Pantoprazole Sodium 40 mg 11/11/17 10:00 11/12/17 10:30 Protonix - PO 40 mg DAILY CESAR Administration Triamcinolone Acetonide 1 applic 11/10/17 22:00 11/12/17 10:31 Aristocort 0.1% Cream - TP 1 applic BID CESAR Administration ASSESSMENT/PLAN: Patient is a 52 year old female with a significant past medical history of ruptured appendix s/p lap appendectomy, POD #6. GI: Ruptured appendix s/p lap appendectomy/POD #6 CT abdomen and pelvis shows intraabdominal collections s/p drainage and SUZETTE tube placement by IR on 11/11/2017 Pain controlled with oxycodone, tylenol + bowel sounds, no abdominal pain on exam, had some pain at SUZETTE drain site at home Discharged on Oxycodone for pain control Outpatient follow up with surgery early next week Skin: Rash/macular rash on back Derm consulted and following Bacterial cultures sent, Triamcinolone cream BID Doxy 100mg BID for 7 more days as per ID Disposition: full code. discharge home today, surgery follow up early next week. Visit type - Emergency Visit Emergency Visit: Yes ED Registration Date: 11/06/17 Care time: The patient presented to the Emergency Department on the above date and was hospitalized for further evaluation of their emergent condition. - New Patient This patient is new to me today: No - Critical Care Critical Care patient: No - Discharge Referral Referred to [facility] No
== END 2017-11-12 13:07 | disposition home or self-care (01) | DRG 225 ==
LOC: FER 23:18 → J6S 11-06 05:30
PROVIDERS: ATTEND Nurse Practitioner Family
PROC: 0W9J30Z Drainage of Pelvic Cavity with Drainage Device, Percutaneous Approach (ICD-10-PCS; 2017-11-06)
PROC: 0DTJ4ZZ Resection of Appendix, Percutaneous Endoscopic Approach (ICD-10-PCS; principal; 2017-11-06 07:26)
DX: K35.2 Acute appendicitis with generalized peritonitis (principal); E86.0 Dehydration; Z87.891 Personal history of nicotine dependence; R21 Rash and other nonspecific skin eruption; S30.821A Blister (nonthermal) of abdominal wall, initial encounter; X58.XXXA Exposure to other specified factors, initial encounter; Y93.89 Activity, other specified; L01.03 Bullous impetigo; K65.1 Peritoneal abscess
CPT/HCPCS: 36415; 49406; 71010-TC; 74177-TC; 80053; 81003; 81015; 82550; 83605; 83690; 84484; 84702; 85025; 85610; 86850; 86900; 86901; 87040; 87070; 87075; 87077; 87205; 88304-TC; 93005; 94760; 99284-25; Q9967

== ENCOUNTER 2018-01-30 21:13 | Emergency (ER) | payer OTHER ==
[2018-01-30 21:29] VITALS: BP 134/68; PULSE 75; TEMP 98.2; BMI 24.0
[2018-01-30] MEDS ORDERED: FAMOTIDINE 20 MG TABLET PO ONE (21:31)
[2018-01-30] MEDS ORDERED: FAMOTIDINE 20 MG TABLET ONE (21:31)
[2018-01-30] MEDS ORDERED: SIMETHICONE 80 MG TAB.CHEW (FP) ONE (21:31)
[2018-01-30] MEDS ORDERED: SIMETHICONE 80 MG TAB.CHEW (FP) PO ONE (21:33)
--- NOTE | 2018-01-30 21:36 | PDOC ---
History of Present Illness - General History Source: Patient Exam Limitations: No Limitations - History of Present Illness Initial Comments: 01/30/18 21:44 The patient is a 52 year old female, with no significant past medical history, who presents to the emergency department with, one week of intermittent, diffuse epigastric pain. The patient describes her pain as waxing and waning lasting 4-5 seconds in duration and occurring approximately an hour apart. She reports the pain to proceed after she eats or drinks. Secondary to her symptoms , she reports feeling bloated and gassy. She denies recent fevers, chills, headache or dizziness. She denies recent nausea, vomit, diarrhea or constipation. She denies recent dysuria, frequency, urgency or hematuria. She denies recent chest pain or shortness of breath. Past surgical history: Appendectomy Social history: Former smoker. Denies EtOH use and recreational drug use. <Emily Holman - Last Filed: 01/30/18 21:44> <Erik Tijerina - Last Filed: 01/31/18 06:30> - General Chief Complaint: Pain, Acute Stated Complaint: ABDOMINAL PAIN X 1 WEEK Time Seen by Provider: 01/30/18 21:18 Past History <Emily Holman - Last Filed: 01/30/18 21:44> - Past Medical History COPD: Yes - Suicide/Smoking/Psychosocial Hx Smoking History: Former smoker Have you smoked in the past 12 months: No Hx Alcohol Use: Yes (socially ) Substance Use Type: None <Erik Tijerina - Last Filed: 01/31/18 06:30> - Past Medical History Allergies/Adverse Reactions: Allergies Allergy/AdvReac Type Severity Reaction Status Date / Time amoxicillin [From Augmentin] AdvReac Verified 01/30/18 21:17 clavulanic acid AdvReac Rash Verified 01/30/18 21:17 [From Augmentin] Home Medications: Ambulatory Orders Famotidine [Pepcid] 20 mg PO BID #20 tablet 01/31/18 Simethicone 80 mg PO QID PRN #20 tab.chew 01/31/18 Review of Systems - Review of Systems Able to Perform ROS?: Yes Comments:: 01/30/18 21:44 GENERAL/CONSTITUTIONAL: No fever or chills. No weakness. HEAD, EYES, EARS, NOSE AND THROAT: No change in vision. No ear pain or discharge. No sore throat. CARDIOVASCULAR: No chest pain or shortness of breath. RESPIRATORY: No cough, wheezing, or hemoptysis. GASTROINTESTINAL: +Epigastric pain. No nausea, vomiting, diarrhea or constipation. GENITOURINARY: No dysuria, frequency, or change in urination. MUSCULOSKELETAL: No joint or muscle swelling or pain. No neck or back pain. SKIN: No rash NEUROLOGIC: No headache, vertigo, loss of consciousness, or change in strength/ sensation. ENDOCRINE: No increased thirst. No abnormal weight change. HEMATOLOGIC/LYMPHATIC: No anemia, easy bleeding, or history of blood clots. ALLERGIC/IMMUNOLOGIC: No hives or skin allergy. All Other Systems: Reviewed and Negative <Emily Holman - Last Filed: 01/30/18 21:44> *Physical Exam - Vital Signs Last Vital Signs Temp Pulse Resp BP Pulse Ox 98.2 F 75 16 134/68 99 01/30/18 21:20 01/30/18 21:20 01/30/18 21:20 01/30/18 21:20 01/30/18 21:20 - Physical Exam Comments: 01/30/18 21:45 GENERAL: Awake, alert, and fully oriented, in no acute distress HEAD: No signs of trauma EYES: PERRLA, EOMI, sclera anicteric, conjunctiva clear ENT: Auricles normal inspection, hearing grossly normal, nares patent, oropharynx clear without exudates. Moist mucosa NECK: Normal ROM, supple, no lymphadenopathy, JVD, or masses LUNGS: Breath sounds equal, clear to auscultation bilaterally. No wheezes, and no crackles HEART: Regular rate and rhythm, normal S1 and S2, no murmurs, rubs or gallops ABDOMEN: +Distended. Tympanitic. Soft, nontender, normoactive bowel sounds. No guarding, no rebound. No masses EXTREMITIES: Normal range of motion, no edema. No clubbing or cyanosis. No cords, erythema, or tenderness NEUROLOGICAL: Cranial nerves II through XII grossly intact. Normal speech, normal gait SKIN: Warm, Dry, normal turgor, no rashes or lesions noted. <Emily Holman - Last Filed: 01/30/18 21:44> ED Treatment Course - Medications Given in the ED: ED Medications Discontinued Medications Generic Name Dose Route Start Last Admin Trade Name Malinda PRN Reason Stop Dose Admin Famotidine 20 mg 01/30/18 21:31 01/30/18 21:38 Pepcid - PO 01/30/18 21:32 20 mg ONCE ONE Administration Simethicone 80 mg 01/30/18 21:33 01/30/18 21:38 Mylicon - PO 01/30/18 21:34 80 mg ONCE ONE Administration <Emily Holman - Last Filed: 01/30/18 21:44> Medical Decision Making - Medical Decision Making 01/31/18 06:29 abd bloating without tenderness trial of pepcid and simethicone imaging if failure to respond to meds <Erik Tijerina - Last Filed: 01/31/18 06:30> *DC/Admit/Observation/Transfer - Attestations Scribe Attestion: 01/30/18 21:45 Documentation prepared by Emily Holman, acting as medical and health services manager for Erik Tijerina MD. <Emily Holman - Last Filed: 01/30/18 21:44> <Erik Tijerina - Last Filed: 01/31/18 06:30> Diagnosis at time of Disposition: Gastritis Qualifiers: Gastritis type: unspecified gastritis Chronicity: acute Gastritis bleeding: without bleeding Qualified Code(s): K29.00 - Acute gastritis without bleeding - Discharge Dispostion Disposition: HOME Condition at time of disposition: Good - Prescriptions Prescriptions: Famotidine [Pepcid] 20 mg PO BID #20 tablet Simethicone 80 mg PO QID PRN #20 tab.chew PRN Reason: bloating - Patient Instructions Printed Discharge Instructions: DI for Gastritis
== END 2018-01-30 21:44 | disposition home or self-care (01) ==
LOC: FER 21:13
DX: K29.00 Acute gastritis without bleeding (principal); Z87.891 Personal history of nicotine dependence
CPT/HCPCS: 99281-25